=== PATIENT | female | born 1960 | race Caucasian/White ===

== ENCOUNTER → 2016-03-24 | Outpatient (CLI) | payer OTHER ==
--- NOTE | 2016-03-24 10:10 | WWHP ---
DATE OF SERVICE: 03/24/2016 CHIEF COMPLAINT: The patient is here for her routine gynecologic exam and mammogram. HPI: This is a 55-year-old G0 with an LMP of 2011. The patient had been seen by Dr. Persaud regarding some postmenopausal bleeding in 2013. She underwent a hysteroscopy with D&C and a polyp was removed. The patient states she has not had any postmenopausal bleeding since then. She is without gynecologic complaints. Past medical history is unremarkable. MEDICATIONS: Multivitamin daily. She is also taking clindamycin temporarily because of a dental procedure. Allergy to PENICILLIN. PAST SURGICAL HISTORY: Tonsillectomy in the 1960s. 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 SOCIAL HISTORY: She denies tobacco, alcohol, and drug use. She has been since the . 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 REVIEW OF SYSTEMS: She has lost about 10 pounds over the last 2 years. She denies respiratory or cardiac problems. GI: Occasional constipation. This has been chronic for many years. PHYSICAL EXAM: Blood pressure 151/87 with repeat blood pressure 136/80. Height 5 feet 3 inches. Weight 220 pounds. Temperature 98.5, pulse 69. This a well-developed, well-nourished white female who is alert and oriented x3 in no acute distress. HEENT is within normal limits. NECK: Supple without mass or thyromegaly. CHEST AND LUNGS: Clear to auscultation. HEART: Regular rate and rhythm. Breasts are without mass or discharge. Axillary exam is negative for adenopathy. BACK: Negative for CVA tenderness. ABDOMEN: Mildly obese, soft, nontender, without palpable masses. PELVIC EXAM: External genitalia reveals mild atrophy without lesions. Cervix and vagina reveal mild atrophy without lesions. There is no evidence of prolapse. The uterus is midposition, nongravid size and nontender. There are no palpable adnexal masses or tenderness. Rectovaginal exam is negative for mass or tenderness and is negative for occult blood. EXTREMITIES: Nontender. IMPRESSION: 1. A 55-year-old menopausal female with normal gynecologic exam. 2. Elevated blood pressure, which improved after repeating it. PLAN: 1. Pap smear was performed. 2. Self breast examination was discussed. 3. Mammogram will be done today. 4. We have discussed her blood pressure. I have stressed the importance of following up with a doctor for this. She states she will establish with a new primary care physician in the near future and follow up with that person for her blood pressure. 5. I have also recommended screening colonoscopy. She states she would like to do this with her primary care physician once she becomes established with one. 6. She will return in one year.
--- NOTE | 2016-03-25 10:46 | MM ---
Reason for exam: screening (asymptomatic). Last mammogram was performed 2 years and 10 months ago. History: Patient is postmenopausal and is nulliparous. Family history of breast cancer in mother. Physical Findings: A clinical breast exam by your physician is recommended on an annual basis and results should be correlated with mammographic findings. MG 3D Screening Mammo W/Cad Bilateral CC and MLO view(s) were taken. Prior study comparison: May 15, 2013, bilateral digital screening mammo w/CAD. January 05, 2011, bilateral digital screening mammo w/CAD. The breast tissue is extremely dense which could obscure a lesion on mammography. Finding #1: There is a 10 mm equal density (isodense), obscured oval mass in the upper outer quadrant of the right breast. ASSESSMENT: Incomplete: need additional imaging evaluation, BI-RAD 0 RECOMMENDATION: Ultrasound of the right breast. [facility] will attempt to contact patient to return for ultrasound.
== END | disposition home or self-care (01) ==
LOC: WWCWWP 08:54
PROVIDERS: ATTEND Obstetrics & Gynecology
DX: Z12.31 Encounter for screening mammogram for malignant neoplasm of breast (principal); R92.8 Other abnormal and inconclusive findings on diagnostic imaging of breast
CPT/HCPCS: 77063; G0202

== ENCOUNTER → 2016-04-07 | Outpatient (CLI) | payer OTHER ==
--- NOTE | 2016-04-07 08:14 | USB ---
Reason for exam: additional evaluation requested from abnormal screening. History: Patient is postmenopausal and is nulliparous. Family history of breast cancer in mother. Physical Findings: Nurse did not find any significant physical abnormalities on exam. US Breast Workup RT Right breast ultrasound including all four quadrants, the retroareolar region and axilla demonstrates a 0.5 x 0.6 x 0.4cm oval, hyperechoic lipoma at 8 o'clock, a 0.4 x 0.4 x 0.2cm oval, hyperechoic lipoma at 11 o'clock and a 0.6 x 0.9 x 0.4cm oval, cystic tapering duct at 10 o'clock. These results were verbally communicated with the patient and result sheet given to the patient on 04/07/16. ASSESSMENT: Benign, BI-RAD 2 RECOMMENDATION: Return to routine screening mammogram schedule for both breasts.
== END | disposition home or self-care (01) ==
LOC: RADUSWWP 06:53
PROVIDERS: ATTEND Obstetrics & Gynecology
DX: R92.8 Other abnormal and inconclusive findings on diagnostic imaging of breast (principal)

== ENCOUNTER → 2017-01-21 | Outpatient (CLI) | payer OTHER ==
--- NOTE | 2017-01-21 18:14 | XR ---
EXAMINATION TYPE: XR lumbar spine 2 or 3V DATE OF EXAM: 01/21/2017 COMPARISON: NONE HISTORY: Back pain TECHNIQUE: 3 views FINDINGS: Lumbar vertebra show 2 cm anterior subluxation of L5 in relation S1. There is bilateral L5 spondylolysis. There is narrowing at L5-S1 disc space. The other disc spaces appear normal. Sacroilia c joints appear normal. IMPRESSION: Spondylolysis of L5 with second-degree L5-S1 spondylolisthesis.
== END ==
LOC: RADXRMAIN 17:16
PROVIDERS: ATTEND Family Medicine
DX: M43.06 Spondylolysis, lumbar region (principal); M43.17 Spondylolisthesis, lumbosacral region
CPT/HCPCS: 72100

== ENCOUNTER → 2017-07-04 | Outpatient (CLI) | payer OTHER ==
--- NOTE | 2017-07-04 23:08 | MR ---
EXAMINATION TYPE: MR brain wo con DATE OF EXAM: 07/04/2017 COMPARISON: NONE HISTORY: Tremors, Headaches, Short Term Memory Loss Standard multiplanar, multisequence MRI departmental protocol Multiplanar, multisequence images of the brain were acquired. Diffusion weighted imaging was performe d. FINDINGS: There is minimal cerebral cortical atrophy. There is no mass effect nor midline shift. Ther e is no sign of intracranial hemorrhage. There are scattered high signal foci at the johns-white matte r junction of both cerebral hemispheres. These measure up to 6 mm. Total number is approximately 10. Ventricles of normal size. There is subtle increased signal on the left side of the ghulma on the FLAIR and T2 images. This area measures 1 cm. The sella turcica appears normal. There is no evidence of a cortical infarct. IMPRESSION: White matter lesions as above are nonspecific. I would consider microvascular ischemia and less likel y demyelinating disease. These are not close to the lateral ventricles. Minimal anterior ethmoid sinusitis is noted.
== END ==
LOC: RADMRIMAIN 16:26
PROVIDERS: ATTEND Family Medicine
DX: R90.82 White matter disease, unspecified (principal); F80.89 Other developmental disorders of speech and language
CPT/HCPCS: 70551

== ENCOUNTER → 2017-07-12 | Outpatient (CLI) | payer OTHER ==
[2017-07-12 12:48] VITALS: BP 138/85; PULSE 79; RESP 12; TEMP 98.3; BMI 42.1
--- NOTE | 2017-07-12 13:46 | P.HPOB ---
History of Present Illness H&P Date: 07/12/17 Chief Complaint: The patient is here for her routine gynecologic exam and mammogram. This is a 57-year-old G0 with an LMP of 2010. The patient states she has had intermittent light vaginal bleeding since 1217. She states that most days she does not have any blood but about 2 times per week has noticed light vaginal bleeding. She has noticed that the bleeding can be associated with heavy lifting. She had a pelvic ultrasound on 06/22/2017 done by [facility]. This showed a 6.7 cm mass at the superior aspect of the uterus which was found to possibly represent an exophytic fibroid. The endometrium was obscured. She previously had a benign endometrial polyp removed with hysteroscopy and D&C in [address] Persaud. She has otherwise without gynecologic complaints. Review of Systems The patient has gained about 18 pounds over the last one and half years. She denies respiratory or cardiac problems. G.I.: constipation. 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 Past Surgical History: Tonsillectomy Past Psychological History: No Psychological Hx Reported Smoking Status: Never smoker Past Alcohol Use History: None Reported Past Drug Use History: None Reported Additional History: She was in the . She is not sexually active. 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 - Past Family History Father Family Medical History: Cancer (Gastric) Mother Family Medical History: Cancer (Breast) Medications and Allergies Home Medications Medication Instructions Recorded Confirmed Type No Known Home Medications [No 07/12/17 07/12/17 History Known Home Medications] Allergies Allergy/AdvReac Type Severity Reaction Status Date / Time Penicillins Allergy Unknown Verified 07/12/17 13:40 Exam - Vital Signs Vital signs: Vital Signs Temp Pulse Resp BP 07/12/17 12:34 98.3 F 79 12 138/85 Intake and Output 07/11/17 07/12/17 07/12/17 22:59 06:59 14:59 Other: Weight 107.955 kg Height 5'3", BMI 42.2. This is a well-developed well-nourished obese white female who is alert and oriented times 3 in no acute distress. HEENT: Within normal limits. NECK: Supple without mass or thyromegaly. CHEST AND LUNGS: Clear to auscultation. HEART: Regular rate and rhythm. BREASTS: Are without mass or discharge. AXILLARY EXAM: Negative for adenopathy. BACK: Negative for CVA tenderness. ABDOMEN: Soft, obese, nontender, without palpable masses. PELVIC EXAM: Normal external genitalia with minimal atrophy. Cervix and vagina appear normal with small amount of old blood. There is no evidence of prolapse. The uterus is midposition, nongravid size and nontender. There are no palpable adnexal masses or tenderness. Bimanual examination is somewhat limited secondary to her size. RECTAL EXAM: rectovaginal exam is negative for mass or tenderness and is negative for occult blood. EXTREMITIES: Nontender. IMPRESSION: 1. 57-year-old female with postmenopausal bleeding. She is head of the bleeding for about 5 months and this has been light and intermittent. Differential diagnosis will include recurrence of an individual polyp, endometrial growth secondary to endogenous estrogen as well as endometrial neoplasia. 2. History of postmenopausal bleeding which resolved after a hysteroscopy and D &C in 2013. 3. Pelvic mass by ultrasound, possible exophytic fibroid. Other possibilities including ovarian mass will be considered. PLAN: 1. Pap smear was deferred since she had a normal one last year. 2. Self breast awareness was discussed. 3. Mammogram will be done today. 4. Pelvic ultrasound will be ordered and can include trans abdominal and possible transvaginal to further delineate the endometrium and pelvic mass. 5. The patient will be referred to Dr. Persaud who previously saw her for postmenopausal bleeding in 2014. 6. She'll also returning one year and PRN.
--- NOTE | 2017-07-13 10:33 | MM ---
Reason for exam: screening (asymptomatic). Last mammogram was performed 1 year and 4 months ago. History: Patient is postmenopausal and is nulliparous. Family history of breast cancer in mother. Physical Findings: A clinical breast exam by your physician is recommended on an annual basis and results should be correlated with mammographic findings. MG 3D Screening Mammo W/Cad Bilateral CC and MLO view(s) were taken. Prior study comparison: March 24, 2016, bilateral MG 3d screening mammo w/cad. May 15, 2013, bilateral digital screening mammo w/CAD. The breast tissue is heterogeneously dense. This may lower the sensitivity of mammography. There is chronic nodularity bilaterally. There is no dominant lesion. No significant changes when compared with prior studies. ASSESSMENT: Benign, BI-RAD 2 RECOMMENDATION: Routine screening mammogram of both breasts in 1 year.
== END | disposition home or self-care (01) ==
LOC: WWCWWP 12:26
PROVIDERS: ATTEND Obstetrics & Gynecology
DX: Z12.31 Encounter for screening mammogram for malignant neoplasm of breast (principal)
CPT/HCPCS: 77063; 77067

== ENCOUNTER → 2017-07-21 | Outpatient (CLI) | payer OTHER ==
--- NOTE | 2017-07-21 13:09 | US ---
EXAMINATION TYPE: US pelvis complete transvag DATE OF EXAM: 07/21/2017 COMPARISON: Pelvic ultrasound January 05, 2011 CLINICAL HISTORY: [id number] mass ,N95.0 menorrhagia. Spotting for 5 months TECHNIQUE: Transvaginal (TV) and Transabdominal (TA) . Transabdominal sonographic images of the pel vis were acquired. Transvaginal sonographic images were medically necessary to better assess the fol lowing anatomy: uterus and ovaries Date of LMP: unknown EXAM MEASUREMENTS: Uterus: 7.7 x 3.6 x 5.1 cm Endometrial Stripe: 1.2 cm Right Ovary: unable to visualize Left Ovary: 1.5 x 1.7 x 1.1 cm 1. Uterus: Retroverted heterogeneous with a complex area posterior body = 1.0 x 0.9 x 1.5cm and comp bhumi area anterior fundus = 1.3 x 0.9 x 1.1cm (fibroids) 2. Endometrium: thickened, heterogenous 3. Right Ovary: Obscured by overlying bowel gas 4. Left Ovary: anechoic area adjacent to ovary = 0.8 x 1.0cm 5. Bilateral Adnexa: appears wnl 6. Posterior cul-de-sac: wnl Suspicious heterogeneous thickening of endometrium more prominent than prior. Technologist acuna jazmin jordan 1.0 cm hyperechoic lesion felt to reflect outer intramural fibroid. No free fluid is seen in pelvis . Left ovary is identified. Right ovary is not clearly seen. No worrisome adnexal masses are present. T echnologist acuna 1 cm oval area adjacent to left ovary could reflect simple small paraovarian cyst. IMPRESSION: Suspicious thickening of endometrium in postmenopausal patient with spotting, neoplasm ca nnot be excluded, further investigation with sampling is advised.
== END | disposition home or self-care (01) ==
LOC: RADUSWWP 06:55
PROVIDERS: ATTEND Obstetrics & Gynecology
DX: N95.0 Postmenopausal bleeding (principal); R19.00 Intra-abdominal and pelvic swelling, mass and lump, unspecified site
CPT/HCPCS: 76830; 76856

== ENCOUNTER 2017-08-03 08:04 | Day surgery (SDC) | payer OTHER ==
[2017-08-01 12:56] VITALS: BMI 40.3
[~2017-08-03 08:04] MED LIST: LACTATED RINGERS 1,000 ML IV SCH; LIDOCAINE 1% 20 ML VIAL (10MG/ML) FOR IV START INTRADERMA PRN
--- NOTE | 2017-08-03 08:06 | P.GSHP ---
History of Present Illness H&P Date: 08/03/17 CHIEF COMPLAINT: Colon screen HISTORY OF PRESENT ILLNESS: The patient is a 57-year-old female who presents for colon screen. Lower endoscopy was offered for further evaluation and management. PAST MEDICAL HISTORY: Please see list. PAST SURGICAL HISTORY: Please see list. MEDICATIONS: Please see list. ALLERGIES: Please see list. SOCIAL HISTORY: No illicit drug use FAMILY HISTORY: No reports of Crohn disease or ulcerative colitis. REVIEW OF ORGAN SYSTEMS: CONSTITUTIONAL: No reports of fevers or chills. PHYSICAL EXAM: VITAL SIGNS: Stable GENERAL: Well-developed pleasant in no acute distress. HEENT: No scleral icterus. Extraocular movements grossly intact. Moist buccal mucosa. NECK: Supple without lymphadenopathy. CHEST: Unlabored respirations. Equal bilateral excursions. CARDIOVASCULAR: Regular rate and rhythm. Distal 2+ pulses. ABDOMEN: Soft, nontender, nondistended. MUSCULOSKELETAL: No clubbing, cyanosis, or edema. ASSESSMENT: 1. Colon screen. PLAN: 1. Recommend proceeding with a lower endoscopy Past Medical History Past Medical History: No Reported History Additional Past Medical History / Comment(s): hx migraines, occ heartburn, irregular bowel movement/constipation, History of Any Multi-Drug Resistant Organisms: None Reported Past Surgical History: Tonsillectomy Past Anesthesia/Blood Transfusion Reactions: Motion Sickness Smoking Status: Never smoker - Past Family History Father Family Medical History: Cancer (Gastric) Mother Family Medical History: Cancer (Breast) Medications and Allergies Home Medications Medication Instructions Recorded Confirmed Type Calcium + Vitamin D (Dose Unknown) 1 tab PO DAILY 08/01/17 08/01/17 History Allergies Allergy/AdvReac Type Severity Reaction Status Date / Time Penicillins Allergy Unknown Verified 08/01/17 12:49 Childhood
[2017-08-03 08:31] VITALS: TEMP 95
[2017-08-03] MEDS ORDERED: PROPOFOL 10 MG/ML 20 ML VIAL IV ONE (08:48)
[2017-08-03] MEDS ORDERED: fentaNYL (PF) 50 MCG/ML 2 ML AMP ONE (08:48)
[2017-08-03] MEDS ORDERED: LIDOCAINE 1% INJ 10MG/ML (20 ML MDV) ONE (08:48)
--- NOTE | 2017-08-03 08:56 | P.HPADDEND ---
H&P Addendum H&P Addendum Date: 08/03/17 Patient reports family history of stomach cancer in her father including new onset gastroesophageal reflux disease and epigastric abdominal pain. We'll proceed with upper endoscopy as well for high risk stomach cancer history within her family.
--- NOTE | 2017-08-03 09:25 | P.PCN ---
Date of Procedure: 08/03/17 Description of Procedure: PREOPERATIVE DIAGNOSIS: Gastroesophageal reflux disease. Morbid obesity. Family history of gastric cancer Epigastric abdominal pain POSTOPERATIVE DIAGNOSIS: Gastroesophageal reflux disease. Morbid obesity. Family history of gastric cancer Epigastric abdominal pain Erosive esophagitis Gastritis OPERATION: Esophagogastroduodenoscopy with biopsies along antrum and GE junction SURGEON: Jeni Ramirez MD ANESTHESIA: MAC. INDICATIONS: The patient is a 57-year-old female who presents with a history of reflux disease. Benefits and risks of the procedure were described. Informed consent was obtained. DESCRIPTION: The patient was brought into the endoscopy suite and laid in the left lateral decubitus position. An Olympus gastroscope was passed along the posterior oropharynx down to the distal esophagus where the squamocolumnar junction was encountered at 35 cm from the incisors. The stomach was entered and no bile reflux was found. Additional findings are listed below. Biopsies with cold forceps were obtained of the antrum. The first through third portion of the duodenum was examined and unremarkable. Retroflexion of the scope confirmed Hill grade 3 lower esophageal valve. The squamocolumnar junction acute LA grade A erosive esophagitis with biopsies obtained. The stomach was desufflated. The patient tolerated the procedure well. FINDINGS: Squamocolumnar junction 35 cm from the incisors. Diaphragmatic hiatus at 35 cm. Hill grade 4 lower esophageal valve. LA grade A erosive esophagitis, acute with biopsies obtained. No active duodenitis. Superficial acute gastritis RECOMMENDATIONS: Further recommendations pending results of pathology report. Upper endoscopy as needed.
--- NOTE | 2017-08-03 09:28 | P.PCN ---
Date of Procedure: 08/03/17 Description of Procedure: PREOPERATIVE DIAGNOSIS: Colonoscopy screening. Family history of gastrointestinal cancer POSTOPERATIVE DIAGNOSIS: Colonoscopy screening. Family history of gastrointestinal cancer Diverticulosis, scattered. OPERATION: Colonoscopy to the ileocecal valve and appendiceal orifice. SURGEON: Jeni Ramirez MD. ANESTHESIA: MAC. INDICATIONS: The patient is a 57-year-old female who presents for colonoscopy screening. Benefits and risks were described and informed consent was obtained. DESCRIPTION OF PROCEDURE: The patient had undergone Gatorade, MiraLAX and Dulcolax prep. She had been brought into the operating room and laid in the left lateral decubitus position. After adequate intravenous sedation, the rectum was examined with 2% lidocaine jelly. No external hemorrhoids were encountered. The rectal tone was within normal limits. No lesions were palpated in the rectal vault. An Olympus colonoscope was advanced until the ileocecal valve and appendiceal orifice were clearly viewed. The prep was excellent with clear visualization of the mucosal folds. The scope was removed with visualization of each mucosal fold. Scattered diverticulosis was encountered. No colonic polyps were found. No evidence of focal colitis was found. Retroflexion of the scope demonstrated no grade 1 internal hemorrhoids. The colon was desufflated. The patient had tolerated the procedure well. Withdrawal time was over 6 minutes. FINDINGS: No internal hemorrhoids No external prolapsed hemorrhoids. No arteriovenous malformations. No adenomatous polyps. No focal colitis. Scattered diverticulosis RECOMMENDATIONS: Lower endoscopy in 5 years with family history of gastrointestinal cancer, 2022 Plan - Discharge Summary New Discharge Prescriptions: New Omeprazole 40 mg PO DAILY #30 capsule. No Action Calcium + Vitamin D (Dose Unknown) 1 tab PO DAILY Discharge Medication List Calcium + Vitamin D (Dose Unknown) 1 tab PO DAILY 08/01/17 [History] Omeprazole 40 mg PO DAILY #30 capsule. 08/03/17 [Rx] Follow up Appointment(s)/Referral(s): Jeni Ramirez MD [STAFF PHYSICIAN] - 08/23/17 Patient Instructions/Handouts: Gastroesophageal Reflux Disease (GEN), Diverticulosis (DC), Diverticulosis Diet (GEN) Activity/Diet/Wound Care/Special Instructions: Repeat colonoscopy in 5 years, 2022 Discharge Disposition: HOME SELF-CARE
[2017-08-03 09:43] VITALS: RESP 18
[2017-08-03 09:49] VITALS: BP 117/70; PULSE 62
== END 2017-08-03 10:07 | disposition home or self-care (01) ==
LOC: ORWHC2ENDO 08:04
PROVIDERS: ATTEND Surgery Plastic and Reconstructive Surgery
DX: K29.00 Acute gastritis without bleeding (principal); K29.50 Unspecified chronic gastritis without bleeding; K57.30 Diverticulosis of large intestine without perforation or abscess without bleeding; K64.4 Residual hemorrhoidal skin tags; K21.0 Gastro-esophageal reflux disease with esophagitis; E66.01 Morbid (severe) obesity due to excess calories; K22.10 Ulcer of esophagus without bleeding; Z80.0 Family history of malignant neoplasm of digestive organs; Z88.0 Allergy status to penicillin; Z80.3 Family history of malignant neoplasm of breast; Z68.41 Body mass index [BMI] 40.0-44.9, adult
CPT/HCPCS: 88305; 45378; 43239; J2001; J3010; J2704

== ENCOUNTER → 2017-08-15 | Outpatient (CLI) | payer OTHER ==
[2017-08-15 17:42] LABS: Blood Urea Nitrogen 18 mg/dL (7-17)
== END | disposition home or self-care (01) ==
LOC: LABWHC1 17:14
PROVIDERS: ATTEND Psychiatry & Neurology Neurology
DX: I51.7 Cardiomegaly (principal)
CPT/HCPCS: 36415; 82565; 84520

== ENCOUNTER → 2017-08-17 | Outpatient (CLI) | payer OTHER ==
--- NOTE | 2017-08-18 00:51 | MR ---
EXAMINATION TYPE: MR cervical spine wo/w con DATE OF EXAM: 08/17/2017 COMPARISON: NONE HISTORY: Tremors, Radiculopathy TECHNIQUE: Multiplanar, multisequence images of the cervical spine were acquired utilizing 10 mL intravenous Elfego avist gadolinium contrast. Diffusion weighted imaging was performed. The cervical vertebra have normal alignment. There is some narrowing of disc spaces from C3 to C7 wit h mild spurring of the endplates. There is posterior disc herniation from C5 to T1. This is larger at C5-6. There is developmentally adequate spinal canal. There is no significant spinal stenosis. Cervi ninfa spinal cord has normal signal pattern. There is no edema. Spinal canal measures 8 mm at C5-6. The re is no evidence of cervical paraspinal mass. The contrast images show no pathologic enhancement. I see no bony destructive process. There is slight elevation of the posterior longitudinal ligament pos terior to T1 vertebra. IMPRESSION: Spondylotic changes. Multilevel posterior cervical disc herniation and larger at C5-6. 8 mm narrowing at C5-6. Normal cervical spinal cord. There is minimal neural foraminal narrowing due to uncovertebr al spurring at C3-4 C4-5 on the right side.
== END | disposition home or self-care (01) ==
LOC: RADMRIMAIN 17:23
PROVIDERS: ATTEND Psychiatry & Neurology Neurology
DX: M48.02 Spinal stenosis, cervical region (principal); M99.71 Connective tissue and disc stenosis of intervertebral foramina of cervical region; M50.122 Cervical disc disorder at C5-C6 level with radiculopathy; M47.22 Other spondylosis with radiculopathy, cervical region
CPT/HCPCS: 72156; A9581

== ENCOUNTER → 2019-05-22 | Outpatient (CLI) | payer BC, OTHER ==
[2019-05-22 10:37] VITALS: BP 139/83; PULSE 52; RESP 18; TEMP 99
--- NOTE | 2019-05-22 11:27 | P.HPOB ---
History of Present Illness H&P Date: 05/22/19 Chief Complaint: The patient is here for her routine gynecologic exam and ma mmogram. This is a 59-year-old G0 with an LMP of 2010. The patient continues to have intermittent light vaginal bleeding. She was seen [place] [address] Persaud who did a hysteroscopy and D&C and an endometrial polyp was removed. She developed intermittent light vaginal bleeding and last year she was sent back to see Dr. Persaud. On 09/12/17 Dr. Persaud did an endometrial biopsy which was benign. The pa summer states she was given some type of hormone medication for 10 days which caused the bleeding to become heavier briefly. She again was having light vaginal bleeding intermittently. During the month of March of this year she had light bleeding most days. Since March it is been about 3 times a week. Review of Systems She has gained about 16 pounds over the past year. Respiratory: She states she seems to get short of breath when she is in the laying position. She has an occasional cough. She denies cardiac or GI problems. She has been tired and feels run down. Past Medical History Past Medical History: Hypertension Additional Past Medical History / Comment(s): Tremor. 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 History of Any Multi-Drug Resistant Organisms: None Reported Past Surgical History: Tonsillectomy Additional Past Surgical History / Comment(s): Colonoscopy approximately 2015. Past Anesthesia/Blood Transfusion Reactions: Motion Sickness Past Psychological History: No Psychological Hx Reported Smoking Status: Never smoker Past Alcohol Use History: None Reported Past Drug Use History: None Reported Additional History: She was in the 1980s and is not sexually active or seeing anybody at this time. She works for [employer]. - Past Family History Father Family Medical History: Cancer Additional Family Medical History / Comment(s): Gastric cancer. Mother Family Medical History: Cancer Additional Family Medical History / Comment(s): Breast cancer. Medications and Allergies Home Medications Medication Instructions Recorded Confirmed Type Propranolol [Inderal] 20 mg PO BID 05/22/19 05/22/19 History Allergies Allergy/AdvReac Type Severity Reaction Status Date / Time Penicillins Allergy Unknown Verified 05/22/19 10:37 Childhood Exam Vital Signs Temp Pulse Resp BP Pulse Ox 05/22/19 10:31 99.0 F 52 L 18 139/83 96 Intake and Output 05/21/19 05/22/19 05/22/19 22:59 06:59 14:59 Other: Weight 115.666 kg Height 5 feet 4 inches, weight 255 pounds, BMI 43.8. This is a well-developed well-nourished heavyset white female who is alert and oriented times 3 in no acute distress. HEENT: Within normal limits. NECK: Supple without mass or thyromegaly. CHEST AND LUNGS: Clear to auscultation. HEART: Regular rate and rhythm. BREASTS: Are without mass or discharge. AXILLARY EXAM: Negative for adenopathy. BACK: Negative for CVA tenderness. ABDOMEN: Soft, obese, nontender, without palpable masses. PELVIC EXAM: Normal external genitalia. Cervix and vagina are without lesions. There is a small amount of blood in the back of the vagina. There is otherwise no unusual discharge. There is no evidence of prolapse. The uterus is midposition, nongravid size and nontender. There are no palpable adnexal masses or tenderness. Bimanual examination is somewhat limited secondary to her size. RECTAL EXAM: Rectovaginal exam is negative for mass or tenderness and is negative for occult blood. EXTREMITIES: Nontender. IMPRESSION: 1. 59-year-old menopausal female with persistent recurrent light postmenopausal bleeding. Differential diagnosis will include bleeding endometrial polyp, endometrial hyperplasia, or other endometrial neoplasia. 2. History of endometrial polyp removed in 2013. Status post endometrial biopsy on 09/12/2017 which was benign. PLAN: 1. Pap smear was performed. 2. Self breast awareness was discussed with the patient. 3. Screening mammogram will be done today. 4. The patient will be referred back to Dr. Persaud for the persistent postmenopausal bleeding for hysteroscopy and D&C. 5. Osteoporosis prevention was discussed. I have stressed the importance of adequate calcium, vitamin D and regular exercise. Recommended amounts of calcium and vitamin D were also discussed. I have recommended bone density testing next year at the age of 60. 6. She will follow-up with her PCP for various symptoms including orthopnea, fatigue, and leg edema. 7. She was advised to return in one year for her annual well woman exam.
--- NOTE | 2019-05-23 13:20 | MM ---
Reason for exam: screening (asymptomatic). Last mammogram was performed 1 year and 10 months ago. History: Patient is postmenopausal and is nulliparous. Family history of breast cancer in mother. Physical Findings: A clinical breast exam by your physician is recommended on an annual basis and results should be correlated with mammographic findings. MG 3D Screening Mammo W/Cad Bilateral CC and MLO view(s) were taken. Prior study comparison: July 12, 2017, bilateral MG 3d screening mammo w/cad. March 24, 2016, bilateral MG 3d screening mammo w/cad. The breast tissue is heterogeneously dense. This may lower the sensitivity of mammography. Benign appearing bilateral calcifications. No suspicious abnormality. No significant changes when compared with prior studies. ASSESSMENT: Benign, BI-RAD 2 RECOMMENDATION: Routine screening mammogram of both breasts in 1 year.
--- NOTE | 2019-06-05 12:19 | P.PN ---
Progress Note - Text Progress Note Date: 06/05/19 OUTPATIENT FOLLOW-UP NOTE TEST(S)/RESULTS: Test results from 05/22/2019 include negative Pap smear and benign mammogram. METHOD OF NOTIFICATION: The patient was notified by phone. PATIENT COMMENTS: She is happy to hear these results. DIAGNOSIS: Negative Pap smear and benign mammogram. DISCUSSION: PLAN: The patient will be referred to Dr. Persaud for recurrent postmenopausal bleeding as discussed in her H&P. She understands there may be some delay in this referral due to the COVID-19 pandemic.
== END | disposition home or self-care (01) ==
LOC: WWCWWP 10:23
PROVIDERS: ATTEND Obstetrics & Gynecology
DX: Z12.31 Encounter for screening mammogram for malignant neoplasm of breast (principal)
CPT/HCPCS: 77063; 77067

== ENCOUNTER → 2020-10-22 | Outpatient (CLI) | payer BC ==
--- NOTE | 2020-10-22 20:01 | NM ---
EXAMINATION TYPE: NM stress cardiolite complete DATE OF EXAM: 10/22/2020 COMPARISON: NONE HISTORY: Chest pain TECHNIQUE: After the intravenous administration of 10 mCi Tc 99m Sestamibi - Cardiolite resting SPEC T images acquired 45 minutes post injection. At peak stress 24.7 mCi Tc 99m Sestamibi - Stress images obtained 15 minutes post injection The patient was stressed on the treadmill with Sky protocol FINDINGS: There is diminished radiotracer accumulation along the anterior wall. This area appears improved on t he resting images. Pulmonary maps suggest reversible defect at the cardiac apex. There is some dyskinesia of the distal anterior wall and cardiac apex. Ejection fraction is calculated to be 53 %. IMPRESSION: 1. Stress-induced ischemic change at the cardiac apex and likely within the distal anterior wall from the midportion to the apex. Dyskinesias present through these levels. Correlate for stress-induced i schemic change. A [place] level critical message alert has been initiated for Yeimi Yates MD via the [employer] Critical Results System on 10/22/2020 7:58 PM. This message alert has been sent to Yeimi Yates MD via the preferences provided by the clinician for the receipt of Radiology Critical Findings. Message ID [id number].
== END | disposition home or self-care (01) ==
LOC: RADNMMAIN 07:37
PROVIDERS: ATTEND Internal Medicine
DX: G24.9 Dystonia, unspecified (principal)
CPT/HCPCS: 93017; 78452; A9500

== ENCOUNTER 2020-10-23 13:30 | Inpatient (IN) | payer BC ==
[2020-10-23] MEDS ORDERED: ASPIRIN 81 MG PO STA (13:45)
[2020-10-23 14:04] LABS: Basophils # (A) 0.1 k/uL (0-0.2); Basophils % (A) 1 %; Eosinophils # (A) 0.6 k/uL (0-0.7); Eosinophils % (A) 5 %; HGB 13.8 gm/dL (11.4-16.0); Lymphocytes % (A) 24 %; MCH 28.7 pg (25.0-35.0); MCHC 32.8 g/dL (31.0-37.0); MCV 87.6 fL (80.0-100.0); Mean Platelet Volume 8.4; Monocytes # (A) 0.7 k/uL (0-1.0); Monocytes % (A) 6 %; Neutrophils # (A) 7.6 k/uL (1.3-7.7); Neutrophils % (A) 62 %; Platelet Count 253 k/uL (150-450); RDW 14.7 % (11.5-15.5); WBC 12.2 k/uL (3.8-10.6)
[2020-10-23 14:17] LABS: Albumin 4.2 g/dL (3.5-5.0); Calcium 9.9 mg/dL (8.4-10.2); Total Bilirubin 0.3 mg/dL (0.2-1.3)
[2020-10-23 14:20] LABS: INR 0.9 (<1.2); Prothrombin Time 9.9 sec (9.0-12.0)
[2020-10-23 14:29] LABS: Magnesium 2.1 mg/dL (1.6-2.3); Potassium 4.9 mmol/L (3.5-5.1)
[2020-10-23 14:34] LABS: Partial Thromboplastin Time 20.2 sec (22.0-30.0)
--- NOTE | 2020-10-23 14:34 | XR ---
EXAMINATION TYPE: XR chest 2V DATE OF EXAM: 10/23/2020 COMPARISON: None HISTORY: 60-year-old female with chest pain TECHNIQUE: PA and lateral views FINDINGS: Heart appears borderline enlarged. Aorta and pulmonary vasculature within normal limits. No consolida tion or pleural effusion. IMPRESSION: Borderline heart size. No acute process seen.
--- NOTE | 2020-10-23 14:50 | ED ---
Recheck HPI - General Chief Complaint: Recheck/Abnormal Lab/Rx Stated Complaint: Recheck/Abnormal Stress Test Time Seen by Provider: 10/23/20 13:38 Source: patient, RN notes reviewed, old records reviewed Mode of arrival: ambulatory Limitations: no limitations - History of Present Illness Initial Comments: 6-year-old female sent in from her doctor after having a abnormal stress test yesterday. She had a Cardiolite stress test which showed evidence of ischemic changes on EKG. She currently is asymptomatic this time and has expressed that she's had some exertional dyspnea and decreased energy recently. No fevers chills nausea vomiting sweats or other symptoms - Related Data Home Medications Medication Instructions Recorded Confirmed Propranolol [Inderal] 20 mg PO BID 05/22/19 05/22/19 Allergies Allergy/AdvReac Type Severity Reaction Status Date / Time Penicillins Allergy Unknown Verified 10/23/20 15:17 Childhood Review of Systems ROS Statement: Those systems with pertinent positive or pertinent negative responses have been documented in the HPI. ROS Other: All systems not noted in ROS Statement are negative. Past Medical History Past Medical History: Hypertension Additional Past Medical History / Comment(s): Tremor. 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 History of Any Multi-Drug Resistant Organisms: None Reported Past Surgical History: Tonsillectomy Additional Past Surgical History / Comment(s): Colonoscopy approximately 2015. Past Anesthesia/Blood Transfusion Reactions: Motion Sickness Past Psychological History: No Psychological Hx Reported Smoking Status: Never smoker Past Alcohol Use History: Rare Past Drug Use History: None Reported - Past Family History Father Family Medical History: Cancer Additional Family Medical History / Comment(s): Gastric cancer. Mother Family Medical History: Cancer Additional Family Medical History / Comment(s): Breast cancer. General Exam - General Exam Comments Initial Comments: This is a well-developed well-nourished awake alert oriented 3 female Limitations: no limitations General appearance: alert, in no apparent distress Head exam: Present: atraumatic, normocephalic, normal inspection Eye exam: Present: normal appearance, PERRL, EOMI. Absent: scleral icterus, conjunctival injection, periorbital swelling ENT exam: Present: normal exam, mucous membranes moist Neck exam: Present: normal inspection, full ROM, other (No stridor JVD or bruits). Absent: tenderness, meningismus, lymphadenopathy Respiratory exam: Present: normal lung sounds bilaterally. Absent: respiratory distress, wheezes, rales, rhonchi, stridor Cardiovascular Exam: Present: regular rate, normal rhythm, normal heart sounds. Absent: systolic murmur, diastolic murmur, rubs, gallop, clicks GI/Abdominal exam: Present: soft, normal bowel sounds. Absent: distended, tenderness, guarding, rebound, rigid Extremities exam: Present: normal inspection, full ROM, normal capillary refill. Absent: tenderness, pedal edema, joint swelling, calf tenderness Back exam: Present: normal inspection Neurological exam: Present: alert, oriented X3, CN II-XII intact Psychiatric exam: Present: normal affect, normal mood Skin exam: Present: warm, dry, intact, normal color. Absent: rash Course Vital Signs 10/23/20 10/23/20 13:32 14:42 Temperature 98.6 F Pulse Rate 75 63 Respiratory 18 18 Rate Blood Pressure 154/71 134/72 O2 Sat by Pulse 97 96 Oximetry Medical Decision Making - Medical Decision Making I did a long discussion with the patient regarding the findings and Dr. Marcelo patient be admitted with cardiology consultation. - Lab Data Result diagrams: 10/23/20 13:51 10/23/20 13:59 Lab Results 10/23/20 10/23/20 10/23/20 Range/Units 13:51 13:51 13:51 WBC 12.2 H (3.8-10.6) k/uL RBC 4.80 (3.80-5.40) m/uL Hgb 13.8 (11.4-16.0) gm/dL Hct 42.0 (34.0-46.0) % MCV 87.6 (80.0-100.0) fL MCH 28.7 (25.0-35.0) pg MCHC 32.8 (31.0-37.0) g/dL RDW 14.7 (11.5-15.5) % Plt Count 253 (150-450) k/uL MPV 8.4 Neutrophils % 62 % Lymphocytes % 24 % Monocytes % 6 % Eosinophils % 5 % Basophils % 1 % Neutrophils # 7.6 (1.3-7.7) k/uL Lymphocytes # 3.0 (1.0-4.8) k/uL Monocytes # 0.7 (0-1.0) k/uL Eosinophils # 0.6 (0-0.7) k/uL Basophils # 0.1 (0-0.2) k/uL PT 9.9 (9.0-12.0) sec INR 0.9 (<1.2) APTT 20.2 L (22.0-30.0) sec D-Dimer 0.84 H (<0.60) mg/L FEU Sodium (137-145) mmol/L Potassium (3.5-5.1) mmol/L Chloride (98-107) mmol/L Carbon Dioxide (22-30) mmol/L Anion Gap mmol/L BUN (7-17) mg/dL Creatinine (0.52-1.04) mg/dL Est GFR (CKD-EPI)AfAm (>60 ml/min/1.73 sqM) Est GFR (CKD-EPI)NonAf (>60 ml/min/1.73 sqM) Glucose (74-99) mg/dL Calcium (8.4-10.2) mg/dL Magnesium (1.6-2.3) mg/dL Total Bilirubin (0.2-1.3) mg/dL AST (14-36) U/L ALT (4-34) U/L Alkaline Phosphatase (38-126) U/L Creatine Kinase (30-135) U/L Troponin I (0.000-0.034) ng/mL NT-Pro-B Natriuret Pep 76 pg/mL Total Protein (6.3-8.2) g/dL Albumin (3.5-5.0) g/dL 10/23/20 10/23/20 Range/Units 13:59 13:59 WBC (3.8-10.6) k/uL RBC (3.80-5.40) m/uL Hgb (11.4-16.0) gm/dL Hct (34.0-46.0) % MCV (80.0-100.0) fL MCH (25.0-35.0) pg MCHC (31.0-37.0) g/dL RDW (11.5-15.5) % Plt Count (150-450) k/uL MPV Neutrophils % % Lymphocytes % % Monocytes % % Eosinophils % % Basophils % % Neutrophils # (1.3-7.7) k/uL Lymphocytes # (1.0-4.8) k/uL Monocytes # (0-1.0) k/uL Eosinophils # (0-0.7) k/uL Basophils # (0-0.2) k/uL PT (9.0-12.0) sec INR (<1.2) APTT (22.0-30.0) sec D-Dimer (<0.60) mg/L FEU Sodium 140 (137-145) mmol/L Potassium 4.9 (3.5-5.1) mmol/L Chloride 109 H (98-107) mmol/L Carbon Dioxide 21 L (22-30) mmol/L Anion Gap 10 mmol/L BUN 21 H (7-17) mg/dL Creatinine 0.85 (0.52-1.04) mg/dL Est GFR (CKD-EPI)AfAm 86 (>60 ml/min/1.73 sqM) Est GFR (CKD-EPI)NonAf 75 (>60 ml/min/1.73 sqM) Glucose 105 H (74-99) mg/dL Calcium 9.9 (8.4-10.2) mg/dL Magnesium 2.1 (1.6-2.3) mg/dL Total Bilirubin 0.3 (0.2-1.3) mg/dL AST 31 (14-36) U/L ALT 29 (4-34) U/L Alkaline Phosphatase 75 (38-126) U/L Creatine Kinase 92 (30-135) U/L Troponin I <0.012 (0.000-0.034) ng/mL NT-Pro-B Natriuret Pep pg/mL Total Protein 7.0 (6.3-8.2) g/dL Albumin 4.2 (3.5-5.0) g/dL - EKG Data -: EKG Interpreted by [facility] EKG shows normal: sinus rhythm EKG Comments: Sinus rhythm with a right bundle-branch block pattern rate 74. Interval 148 QRS durations [birth year]/1941 QT/QTC 432/479 this is compared with EKG dated 05/28/13 for similar configuration. - Radiology Data Radiology results: report reviewed (Imaging reviewed no acute findings), image reviewed Disposition Clinical Impression: Unstable angina, Elevated d-dimer Disposition: ADMITTED IP TO THIS [facility] Condition: Stable Referrals: Milan,Yeimi, MD [Primary Care Provider] - 1-2 days
[2020-10-23] MEDS ORDERED: HEPARIN SODIUM 1,000 UN/ML (10ML VL) IV ONE (14:55)
[2020-10-23] MEDS ORDERED: NITROGLYCERIN SL TABS 0.4 MG TAB SUBLINGUAL PRN (14:55)
[2020-10-23] MEDS ORDERED: HEPARIN SOD,PORK IN 0.45% NACL 25,000 UNIT in 0.45% NACL 1 250ML.BAG IV SCH (15:00)
[2020-10-23] MEDS: SODIUM CHLORIDE 0.9% 1,000 ML IV SCH (15:18)
--- NOTE | 2020-10-23 18:02 | P.STRESS ---
- Stress Test Note Stress Test Results/Findings: Exam Performed: Exam Date: Reason for Exam: Height: 5 ft 4 in Weight: 117.934 kg Protocol: Stage: Duration of Exercise: Resting Heart Rate: Resting Blood Pressure: Maximum Achieved Heart Rate: Maximum Achieved Blood Pressure: 85% PMHR: 100% PMHR: METS: Technologist Comment: Stress Test Results/Findings: Patient underwent exercise stress EKG with a Sky protocol treadmill stress test. Patient exercised into Stage 2 for a total of 5 minutes 36 seconds reaching a total of 6.8 METS. Patient's maximum heart rate was 156 which represented 98 % age-predicted maximum heart rate. Stress EKG findings: At baseline patient's EKG showed normal sinus rhythm, right axis deviation, r ight bundle yvon block with nonspecific ST depressions V1 through V4. At peak exercise, EKG showed accentuation of baseline EKG abnormalities which is nondiagnostic given baseline EKG abnormalities. Conclusions: 1. Nondiagnostic stress EKG secondary to baseline EKG abnormalities. Consider stress test with imaging modality if clinically indicated 2. Poor exercise capacity.
[2020-10-23] MEDS ORDERED: HEPARIN SODIUM 1,000 UN/ML (10ML VL) IV PRN (21:47)
[2020-10-23] MEDS: PROPRANOLOL 20 MG TAB PO SCH (21:59)
[2020-10-24] MEDS ORDERED: HEPARIN SODIUM,PORCINE 2,500 UNIT in SODIUM CHLORIDE 0.9% 250 ML IRRIGATION PRN (07:00)
[2020-10-24] MEDS ORDERED: HEPARIN SODIUM,PORCINE 10,000 UNIT in SODIUM CHLORIDE 0.9% 1,000 ML IRRIGATION PRN (07:00)
[2020-10-24] MEDS ORDERED: ALPRAZolam 0.5 MG TAB PO PRN (08:18)
[2020-10-24] MEDS ORDERED: NITROGLYCERIN SL TABS 0.4 MG TAB SUBLINGUAL PRN (08:18)
[2020-10-24] MEDS ORDERED: ATORVASTATIN 80 MG TAB PO STA (08:18)
[2020-10-24] MEDS ORDERED: ASPIRIN 325 MG TAB PO STA (08:18)
[2020-10-24] MEDS ORDERED: ALPRAZolam 0.25 MG TAB PO PRN (08:18)
[2020-10-24] MEDS ORDERED: SODIUM CHLORIDE 0.9% 1,000 ML in EMPTY BAG 1 BAG IV ONE (08:18)
[2020-10-24] MEDS ORDERED: ASPIRIN 81 MG PO SCH (09:00)
[2020-10-24] MEDS ORDERED: ASPIRIN 325 MG TAB PO SCH (09:00)
--- NOTE | 2020-10-24 10:00 | P.HPIM ---
History of Present Illness H&P Date: 10/24/20 Chief Complaint: Unstable angina This is a 60-year-old female patient who presented to the ER after having an abnormal stress test completed this week. Patient reports that she's had ongoing dyspnea and low energy over the past year which warranted a stress test to be completed. Patient does have a past medical history of hypertension and essential tremor. Patient denies nicotine dependence. Chest x-ray was completed in ER showing borderline heart size no acute process seen. EKG completed showing normal sinus rhythm right bundle branch block. Troponins negative 3. Cardiology services have been consulted. 2-D echo has been ordered. Patient started on heparin drip. At this time patient denies chest pain or shortness of breath. Patient denies nausea vomiting or diarrhea. Patient denies any urinary burning or frequency Review of Systems Please refer to HPI otherwise unremarkable Past Medical History Past Medical History: Hypertension Additional Past Medical History / Comment(s): Essential Tremor. 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 History of Any Multi-Drug Resistant Organisms: None Reported Past Surgical History: Tonsillectomy Additional Past Surgical History / Comment(s): Colonoscopy approximately 2015. Past Anesthesia/Blood Transfusion Reactions: Motion Sickness Smoking Status: Never smoker - Past Family History Father Family Medical History: Cancer Additional Family Medical History / Comment(s): Gastric cancer. Mother Family Medical History: Cancer Additional Family Medical History / Comment(s): Breast cancer. Medications and Allergies Home Medications Medication Instructions Recorded Confirmed Type Propranolol [Inderal] 20 mg PO BID 05/22/19 10/23/20 History Allergies Allergy/AdvReac Type Severity Reaction Status Date / Time Penicillins Allergy Unknown Verified 10/23/20 15:17 Childhood Physical Exam Vitals: Vital Signs Temp Pulse Pulse Resp BP BP Pulse Ox 10/24/20 08:00 17 10/24/20 07:00 97.8 F 52 L 17 126/82 93 L 10/24/20 02:00 97.8 F 56 L 18 112/69 96 10/23/20 19:39 98.2 F 59 L 18 142/91 96 10/23/20 19:28 62 16 10/23/20 16:29 98 F 62 16 138/83 96 10/23/20 16:15 97.8 F 63 18 145/72 98 10/23/20 14:42 63 18 134/72 96 10/23/20 13:32 98.6 F 75 18 154/71 97 Intake and Output 10/23/20 10/24/20 10/24/20 22:59 06:59 14:59 Intake Total 265.167 81.002 Balance 265.167 81.002 Intake: Intake, IV Titration 65.167 81.002 Amount Heparin Sod,Pork in 0.45% 65.167 81.002 NaCl 25,000 unit In 0.45 % NaCl 1 250ml.bag @ 8. 479 UNITS/KG/HR 10 mls/hr IV .Q24H [facility] Rx#: [id number] Oral 200 0 Other: Voiding Method Toilet Toilet # Voids 1 2 Weight 117.934 kg Head normocephalic Neck supple Lungs clear to auscultation bilaterally no wheezing or crackles Heart regular rate and rhythm S1-S2, no rub or gallop Abdomen is soft nontender nondistended positive bowel sounds no hepatosplenomegaly Extremities no edema Neuro alert and orientated to 3 Results CBC & Chem 7: 10/23/20 13:51 10/23/20 13:59 Labs: Abnormal Lab Results - Last 24 Hours (Table) 10/23/20 10/23/20 10/23/20 Range/Units 13:51 13:51 13:59 WBC 12.2 H (3.8-10.6) k/uL APTT 20.2 L (22.0-30.0) sec D-Dimer 0.84 H (<0.60) mg/L FEU Chloride 109 H (98-107) mmol/L Carbon Dioxide 21 L (22-30) mmol/L BUN 21 H (7-17) mg/dL Glucose 105 H (74-99) mg/dL 10/24/20 Range/Units 02:44 WBC (3.8-10.6) k/uL APTT 49.4 H (22.0-30.0) sec D-Dimer (<0.60) mg/L FEU Chloride (98-107) mmol/L Carbon Dioxide (22-30) mmol/L BUN (7-17) mg/dL Glucose (74-99) mg/dL Assessment and Plan Assessment: 1. Unstable angina with abnormal stress test. Cardiology services have been consulted. Patient started on heparin drip. 2. History of essential hypertension 3. Essential tremor Cardiology services have been consulted 2-D echo ordered Time with Patient: Greater than 30 (Greater than 60% of the total time spent in counseling and coordination of care)
[2020-10-24] MEDS: PROPRANOLOL 20 MG TAB PO SCH ×2 (10:02→20:41)
--- NOTE | 2020-10-24 10:20 | P.CRDCN ---
History of Present Illness Consult date: 10/24/20 History of present illness: HISTORY OF PRESENT ILLNESS: This is a 60-year-old female with a past medical history significant for hypertension and essential tremors. Patient denies any cardiac history and does not follow with a surveillance operator. We have been asked to see the patient in consultation for abnormal stress test. Patient examined at the bedside. Patient reports she has been having dyspnea with exertion since the summer. She states she had some issues with her insurance and did not have testing completed at that time. However she recently saw her primary care physician and a stress test was ordered. Patient underwent nuclear stress test on 10/22/2020 revealing stress-induced ischemic changes at the cardiac apex and likely within the distal anterior wall from the midportion to the apex. Dyskinesias present through th mile levels. At the time of my examination, the patient reports mild pain to the left lower chest and armpit. The pain is not worse with deep inspiration or with chest wall palpation. She denies any radiation of the pain to her jaw, back, or arm, she denies any shortness of breath. She denies any nausea or vomiting. She denies any diaphoresis. EKG reveals sinus mechanism with right bundle-branch block Chest xray borderline heart size. No acute process seen. Laboratory data: WBC 12.2. Hemoglobin 13.8. Platelet count 253. D-dimer 0.84. Sodium 140. Potassium 4.9. BUN 21. Creatinine 0.5. Magnesium 2.1. ProBNP 76. Troponin negative 3. Current home cardiac medications include propanolol 20 mg twice a day REVIEW OF SYSTEMS: At the time of my exam: CONSTITUTIONAL: Denies fever or chills. HEENT: Denies blurred vision, vision changes, or eye pain. Denies hemoptysis CARDIOVASCULAR: Reports mild chest pain. Denies orthopnea. Denies PND. Denies pa lpitations RESPIRATORY: Denies shortness of breath. GASTROINTESTINAL: Denies abdominal pain. Denies nausea or vomiting. HEMATOLOGIC: Denies bleeding disorders. GENITOURINARY: Denies any blood in urine. SKIN: Denies pruitis. Denies rash. PHYSICAL EXAM: VITAL SIGNS: Reviewed. GENERAL: Well-developed in no acute distress. HEENT: Head is normocephalic. Pupils are equal, round. Sclerae anicteric. Mucous membranes of the mouth are moist. Neck supple. No JVD or thyromegaly LUNGS: Respirations even and unlabored. Lungs essentially clear to auscultation bilaterally. HEART: Regular rate and rhythm. S1 and S2 heard. ABDOMEN: Soft. Nondistended. Nontender. EXTREMITIES: Normal range of motion. No clubbing or cyanosis. Peripheral pulses intact. No lower extremity edema NEUROLOGIC: Awake and alert. Oriented x 3. ASSESSMENT: Exertional dyspnea 1 year Abnormal nuclear stress test Hypertension Essential tremors Morbid obesity: BMI 44.6 PLAN: Obtain 2D echo to assess cardiac structure and function Resume home dose of Propranolol Add aspirin 81mg daily Discontinue IV heparin Obtain lipid panel Patient to undergo cardiac catheterization today with Dr. Albarran Further recommendations pending patient's course Nurse practitioner note has been reviewed by physician. Signing provider agrees with the documented findings, assessment, and plan of care. Past Medical History Past Medical History: Hypertension Additional Past Medical History / Comment(s): Essential Tremor. 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 History of Any Multi-Drug Resistant Organisms: None Reported Past Surgical History: Tonsillectomy Additional Past Surgical History / Comment(s): Colonoscopy approximately 2015. Past Anesthesia/Blood Transfusion Reactions: Motion Sickness Smoking Status: Never smoker - Past Family History Father Family Medical History: Cancer Additional Family Medical History / Comment(s): Gastric cancer. Mother Family Medical History: Cancer Additional Family Medical History / Comment(s): Breast cancer. Medications and Allergies Home Medications Medication Instructions Recorded Confirmed Type Propranolol [Inderal] 20 mg PO BID 05/22/19 10/23/20 History Allergies Allergy/AdvReac Type Severity Reaction Status Date / Time Penicillins Allergy Unknown Verified 10/23/20 15:17 Childhood Physical Exam Vitals: Vital Signs Temp Pulse Pulse Resp BP BP Pulse Ox 10/24/20 02:00 97.8 F 56 L 18 112/69 96 10/23/20 19:39 98.2 F 59 L 18 142/91 96 10/23/20 19:28 62 16 10/23/20 16:29 98 F 62 16 138/83 96 10/23/20 16:15 97.8 F 63 18 145/72 98 10/23/20 14:42 63 18 134/72 96 10/23/20 13:32 98.6 F 75 18 154/71 97 Intake and Output 10/23/20 10/24/20 10/24/20 22:59 06:59 14:59 Intake Total 265.167 81.002 Balance 265.167 81.002 Intake: Intake, IV Titration 65.167 81.002 Amount Heparin Sod,Pork in 0.45% 65.167 81.002 NaCl 25,000 unit In 0.45 % NaCl 1 250ml.bag @ 8. 479 UNITS/KG/HR 10 mls/hr IV .Q24H [facility] Rx#: [id number] Oral 200 0 Other: Voiding Method Toilet # Voids 1 2 Weight 117.934 kg Results 10/23/20 13:51 10/23/20 13:59 Cardiac Enzymes 10/23/20 10/23/20 10/23/20 Range/Units 13:59 13:59 16:35 AST 31 (14-36) U/L Troponin I <0.012 <0.012 (0.000-0.034) ng/mL 10/23/20 Range/Units 20:38 AST (14-36) U/L Troponin I <0.012 (0.000-0.034) ng/mL Coagulation 10/23/20 10/23/20 10/24/20 Range/Units 13:51 20:38 02:44 PT 9.9 (9.0-12.0) sec APTT 20.2 L 28.0 49.4 H (22.0-30.0) sec CBC 10/23/20 Range/Units 13:51 WBC 12.2 H (3.8-10.6) k/uL RBC 4.80 (3.80-5.40) m/uL Hgb 13.8 (11.4-16.0) gm/dL Hct 42.0 (34.0-46.0) % Plt Count 253 (150-450) k/uL Comprehensive Metabolic Panel 10/23/20 Range/Units 13:59 Sodium 140 (137-145) mmol/L Potassium 4.9 (3.5-5.1) mmol/L Chloride 109 H (98-107) mmol/L Carbon Dioxide 21 L (22-30) mmol/L BUN 21 H (7-17) mg/dL Creatinine 0.85 (0.52-1.04) mg/dL Glucose 105 H (74-99) mg/dL Calcium 9.9 (8.4-10.2) mg/dL AST 31 (14-36) U/L ALT 29 (4-34) U/L Alkaline Phosphatase 75 (38-126) U/L Total Protein 7.0 (6.3-8.2) g/dL Albumin 4.2 (3.5-5.0) g/dL Current Medications Generic Name Dose Route Start Last Admin Trade Name Freq PRN Reason Stop Dose Admin Aspirin 81 mg 10/24/20 09:00 Aspirin 81 Mg PO DAILY [facility] Heparin Sodium (Porcine) 0 unit 10/23/20 21:47 10/23/20 21:59 Heparin Sodium 1,000 Un/Ml (10ml Vl) IV 4,000 unit PER PROTOCOL PRN Administration Low PTT Protocol Heparin Sodium/Sodium Chloride 250 mls @ 10 mls/hr 10/23/20 15:00 10/24/20 03:45 25,000 unit/ Sodium Chloride IV 11.479 units/kg/hr .Q24H [facility] 13.538 mls/hr Titration Protocol 8.479 UNITS/KG/HR Sodium Chloride 1,000 mls @ 20 mls/hr 10/23/20 15:00 10/23/20 15:18 Saline 0.9% IV 20 mls/hr .Q24H [facility] Administration Nitroglycerin 0.4 mg 10/23/20 14:55 Nitroglycerin Sl Tabs 0.4 Mg Tab SUBLINGUAL Q5M PRN Chest Pain Propranolol HCl 20 mg 10/23/20 21:00 10/23/20 21:59 Propranolol 20 Mg Tab PO 20 mg BID ARLENE Administration Intake and Output 10/23/20 10/24/20 10/24/20 22:59 06:59 14:59 Intake Total 265.167 81.002 Balance 265.167 81.002 Intake: Intake, IV Titration 65.167 81.002 Amount Heparin Sod,Pork in 0.45% 65.167 81.002 NaCl 25,000 unit In 0.45 % NaCl 1 250ml.bag @ 8. 479 UNITS/KG/HR 10 mls/hr IV .Q24H [facility] Rx#: [id number] Oral 200 0 Other: Voiding Method Toilet # Voids 1 2 Weight 117.934 kg 10/23/20 13:51 10/23/20 13:59
[2020-10-24 11:13] LABS: Basophils # (A) 0.1 k/uL (0-0.2); Basophils % (A) 1 %; Eosinophils # (A) 0.6 k/uL (0-0.7); Eosinophils % (A) 5 %; HCT 39.6 % (34.0-46.0); HGB 12.9 gm/dL (11.4-16.0); Lymphocytes # (A) 4.3 k/uL (1.0-4.8); Lymphocytes % (A) 39 %; MCH 28.8 pg (25.0-35.0); MCHC 32.5 g/dL (31.0-37.0); MCV 88.6 fL (80.0-100.0); Mean Platelet Volume 9.1; Monocytes # (A) 0.7 k/uL (0-1.0); Monocytes % (A) 6 %; Neutrophils % (A) 45 %; Platelet Count 244 k/uL (150-450); RBC 4.47 m/uL (3.80-5.40); RDW 14.6 % (11.5-15.5); WBC 10.9 k/uL (3.8-10.6)
[2020-10-24 12:39] LABS: Appearance,Urine Cloudy (Clear); Bacteria,Urine Rare /hpf; Bilirubin,Urine Negative (Negative); Blood,Urine Negative (Negative); Color,Urine Yellow; Glucose,Urine (UA) Negative (Negative); Ketones,Urine Negative (Negative); Leukocyte Esterase,Urine Negative (Negative); Mucus,Urine Rare /hpf; Nitrite,Urine Negative (Negative); Protein,Urine Negative (Negative); RBC,Urine <1 /hpf (0-5); Specific Gravity,Urine 1.018 (1.001-1.035); Squamous Epithelial Cell,Urine 4 /hpf (0-4); Urobilinogen,Urine <2.0 mg/dL (<2.0); WBC,Urine 2 /hpf (0-5)
[2020-10-24] MEDS ORDERED: LIDOCAINE 1% INJ 10MG/ML (20 ML MDV) ONE (12:39)
[2020-10-24] MEDS ORDERED: VERAPAMIL 2.5 MG/ML 2 ML AMP ONE (12:39)
[2020-10-24] MEDS ORDERED: IV FLUID CONTINUATION 1,000 ML IV ONE (12:40)
[2020-10-24] MEDS ORDERED: MIDAZOLAM 2 MG/2 ML VIAL IV ONE (12:47)
[2020-10-24] MEDS ORDERED: fentaNYL (PF) 50 MCG/ML 2 ML AMP IV ONE (12:47)
[2020-10-24] MEDS ORDERED: LIDOCAINE 1% INJ 10MG/ML (20 ML MDV) SQ ONE (12:47)
[2020-10-24] MEDS ORDERED: fentaNYL (PF) 50 MCG/ML 2 ML AMP ONE (12:48)
[2020-10-24] MEDS ORDERED: VERAPAMIL SYRINGE (5 MG/10 ML) INTRAARTER ONE (12:50)
[2020-10-24] MEDS ORDERED: HEPARIN SODIUM 1,000 UN/ML (10ML VL) IV ONE (12:51)
[2020-10-24] MEDS ORDERED: IOPAMIDOL-370 125ML BTL INJ ONE (12:58)
--- NOTE | 2020-10-24 16:48 | ECHOF ---
Referral Reason:LV function MEASUREMENTS -------- HEIGHT: 162.6 cm WEIGHT: 117.9 kg BP: 126/82 RVIDd: 3.1 cm (< 3.3) IVSd: 1.2 cm (0.6 - 1.1) LVIDd: 4.9 cm (3.9 - 5.3) LVPWd: 1.2 cm (0.6 - 1.1) IVSs: 1.6 cm LVIDs: 2.7 cm LVPWs: 1.8 cm LAESV Index (A-L): 27.66 ml/m Ao Diam: 3.2 cm (2.0 - 3.7) AV Cusp: 2.1 cm (1.5 - 2.6) LA Diam: 4.4 cm (2.7 - 3.8) MV EXCURSION: 16.144 mm (> 18.000) MV EF SLOPE: 89 mm/s (70 - 150) EPSS: 0.7 cm MV E Maicol: 0.97 m/s MV DecT: 356 ms MV A Maicol: 0.72 m/s MV E/A Ratio: 1.35 RAP: 5.00 mmHg RVSP: 18.88 mmHg FINDINGS -------- Sinus rhythm. This was a technically difficult study with suboptimal apical views. The left ventricular size is normal. There is mild concentric left ventricular hypertrophy. Overa ll left ventricular systolic function is normal with, an EF between 55 - 60 %. The diastolic fillin g pattern is normal for the age of the patient 15.61. The right ventricle is normal in size. Normal LA size by volume 22+/-6 ml/m2. The right atrial size is normal. 5.0mg of Lumason was utilized for enhancement of images Interatrial and interventricular septum intact. The aortic valve is trileaflet and appears structurally normal. There is no evidence of aortic regu rgitation. There is no evidence of aortic stenosis. Mild mitral regurgitation is present. Mild tricuspid regurgitation present. There is no evidence of pulmonary hypertension. The right v entricular systolic pressure, as measured by Doppler, is 18.88mmHg. There is no pulmonic regurgitation present. The aortic root size is normal. IVC Not well visulized. There is no pericardial effusion. CONCLUSIONS -------- 1. The left ventricular size is normal. 2. There is mild concentric left ventricular hypertrophy. 3. Overall left ventricular systolic function is normal with, an EF between 55 - 60 %. 4. The diastolic filling pattern is normal for the age of the patient 15.61 5. Mild mitral regurgitation is present. 6. Mild tricuspid regurgitation present. FORENSIC CHEMIST: Germania Valle RDCS
[2020-10-24 18:43] LABS: Chol/HDL Ratio 5.38; LDL Cholesterol,Calculated 99.2 mg/dL (0.0-131.0); VLDL Calculation 27.8 mg/dL (5.00-40.00)
[2020-10-24] MEDS: SODIUM CHLORIDE 0.9% 1,000 ML IV SCH (20:40)
--- NOTE | 2020-10-24 21:36 | P.PN ---
Subjective PROCEDURES PERFORMED: Left heart catheterization, bilateral coronary angiography INDICATION: Abnormal stress test HISTORY: Patient is a pleasant 60-year-old female who has been having intermittent chest pain for approximately one year however also has been having dyspnea on exertion. She did have stress test performed which showed concern of ischemia and therefore heart catheterization was recommended. CONSENT:I have discussed the risks, benefits and alternative therapies for the above-mentioned procedure and for both sedation/analgesia as well as necessary blood product administration, if indicated, as they pertain to this patient. Th e patient has indicated understanding and acceptance of the risks and procedures discussed. PROCEDURE: After the risks, benefits and alternatives of the above mentioned procedure explained in detail with the patient, informed consent was obtained. Patient was taken to the catheterization lab and prepped and draped in usual fashion. 1% lidocaine was used to anesthetize the right radial artery. A 6- Marshallese sheath was placed in the right radial artery using modified Seldinger technique. Left coronary angiography was performed with a 5-Marshallese JL 3.5 catheter and right coronary angiography was performed with a 5-Marshallese JR5 catheter in various views. A 5-Marshallese FR5 catheter was inserted into the left ventricle and pressure measurements were obtained. The right radial sheath was removed and a TR band was placed with hemostasis achieved. The patient tolerated the procedure well. Patient was transported back to the post catheterization holding area in stable condition. Conscious Sedation: Patient was monitored under the direct supervision of vision of myself for conscious sedation using Versed and fentanyl for a total duration of 15 minutes HEMODYNAMICS: Ao: 148/67 LV: 145/2, LVEDP 12mmHg SELECTIVE CORONARY ARTERIOGRAPHY: LEFT MAIN: The left main is a large caliber vessel which bifurcates into the LAD and circumflex. There is no significant stenosis. LEFT ANTERIOR DESCENDING CORONARY ARTERY: LAD is a large caliber vessel which wraps around to the apex. There is a proximal LAD 10% stenosis and otherwise no stenosis. LEFT CIRCUMFLEX CORONARY ARTERY: Left circumflex is a moderate caliber vessel without significant stenosis. There is a "high OM", nearly a ramus. RIGHT CORONARY ARTERY: The right coronary artery is a large caliber vessel which gives off a PDA and PLV branch and is the dominant vessel. There is no significant stenosis. FINAL IMPRESSION: 1. Relatively normal coronary arteries with only proximal LAD 10% stenosis as described above. 2. Normal left sided filling pressures PLAN: 1. Aggressive risk factor modification per most recent ACC/AHA guidelines. Objective - Vital Signs Vital signs: Vital Signs Temp 97.8 F 10/24/20 19:10 Pulse 59 L 10/24/20 20:00 Resp 16 10/24/20 20:00 BP 136/88 10/24/20 19:10 Pulse Ox 93 L 10/24/20 19:10 Intake & Output 10/24/20 10/24/20 10/25/20 06:59 18:59 06:59 Intake Total 751.736 9188 Output Total 300 Balance 362.949 6395 Intake: IV 1100 Sodium Chloride 0.9% 1, 1000 000 ml In Empty Bag 1 bag @ 1 ML/KG/HR 117.934 mls /hr IV .Q8H29[facility] Rx#: [id number] Intake, IV Titration 146.169 Amount Heparin Sod,Pork in 0.45% 146.169 NaCl 25,000 unit In 0.45 % NaCl 1 250ml.bag @ 8. 479 UNITS/KG/HR 10 mls/hr IV .Q24H [facility] Rx#: [id number] Oral 0 477 Output: Urine 300 Other: Voiding Method Toilet Toilet Toilet # Voids 2 1 - Labs CBC & Chem 7: 10/24/20 02:55 10/23/20 13:59 Labs: Abnormal Lab Results - Last 24 Hours (Table) 10/24/20 10/24/20 10/24/20 Range/Units 02:44 02:44 02:55 WBC 10.9 H (3.8-10.6) k/uL APTT 49.4 H (22.0-30.0) sec HDL Cholesterol 29.0 L (40.0-60.0) mg/dL Urine Appearance (Clear) Urine Bacteria (None) /hpf Urine Mucus (None) /hpf 10/24/20 Range/Units 12:20 WBC (3.8-10.6) k/uL APTT (22.0-30.0) sec HDL Cholesterol (40.0-60.0) mg/dL Urine Appearance Cloudy H (Clear) Urine Bacteria Rare H (None) /hpf Urine Mucus Rare H (None) /hpf
[2020-10-25 07:31] LABS: African American GFR (CKD) 70.9 (60.0-200.0); Albumin/Globulin Ratio 1.82 (1.60-3.17); Anion Gap 13.4 mmol/L (4.00-12.00); Calcium 8.6 mg/dL (8.7-10.3); Carbon Dioxide 20.6 mmol/L (21.6-31.8); Globulin 2.2 g/dL (1.6-3.3); Non-African American GFR(CKD) 61.2 (60.0-200.0); Potassium 4.3 mmol/L (3.5-5.5); Total Bilirubin 0.3 mg/dL (0.2-1.2); Total Protein 6.2 g/dL (6.2-8.2)
[2020-10-25] MEDS: ASPIRIN 81 MG PO SCH (08:02)
[2020-10-25] MEDS: PROPRANOLOL 20 MG TAB PO SCH ×2 (08:02→20:57)
[2020-10-25 09:10] LABS: Basophils # (A) 0.04 X 10*3/uL (0.00-0.10); Basophils % (A) 0.4 %; Eosinophils # (A) 0.36 X 10*3/uL (0.04-0.35); Eosinophils % (A) 3.8 %; HCT 39.1 % (37.2-46.3); Lymphocytes # (A) 2.87 X 10*3/uL (0.90-5.00); Lymphocytes % (A) 30.4 %; MCH 27.4 pg (27.0-32.0); MCHC 30.7 g/dL (32.0-37.0); MCV 89.3 fL (80.0-97.0); Mean Platelet Volume 11.5 fL (9.5-12.2); Monocytes # (A) 0.97 X 10*3/uL (0.20-1.00); Monocytes % (A) 10.3 %; Neutrophils # (A) 5.15 X 10*3/uL (1.80-7.70); Neutrophils % (A) 54.7 %; Platelet Count 220 X 10*3/uL (140-440); RBC 4.38 X 10*6/uL (4.10-5.20); RDW 14.2 % (11.5-14.5); WBC 9.43 X 10*3/uL (4.50-10.00)
[2020-10-25 09:47] LABS: African American GFR (CKD) 80.5 (60.0-200.0); Albumin 3.8 g/dL (3.80-4.90); Albumin/Globulin Ratio 1.73 (1.60-3.17); Anion Gap 7.6 mmol/L (4.00-12.00); BUN/Creat Ratio 17.78 Ratio (12.00-20.00); Calcium 8.7 mg/dL (8.7-10.3); Carbon Dioxide 25.4 mmol/L (21.6-31.8); Globulin 2.2 g/dL (1.6-3.3); Non-African American GFR(CKD) 69.5 (60.0-200.0); Potassium 4.2 mmol/L (3.5-5.5); Total Bilirubin 0.4 mg/dL (0.2-1.2)
--- NOTE | 2020-10-25 10:54 | P.CARDCATH ---
Description of Procedure: Date of procedure: 10/24/2020 PROCEDURES PERFORMED: Left heart catheterization, bilateral coronary angiography INDICATION: Abnormal stress test HISTORY: Patient is a pleasant 60-year-old female who has been having intermittent chest pain for approximately one year however also has been having dyspnea on exertion. She did have stress test performed which showed concern of ischemia and therefore heart catheterization was recommended. CONSENT:I have discussed the risks, benefits and alternative therapies for the above-mentioned procedure and for both sedation/analgesia as well as necessary blood product administration, if indicated, as they pertain to this patient. The patient has indicated understanding and acceptance of the risks and procedures discussed. PROCEDURE: After the risks, benefits and alternatives of the above mentioned procedure explained in detail with the patient, informed consent was obtained. Patient was taken to the catheterization lab and prepped and draped in usual fashion. 1% lidocaine was used to anesthetize the right radial artery. A 6- Turkmen sheath was placed in the right radial artery using modified Seldinger technique. Left coronary angiography was performed with a 5-Turkmen JL 3.5 catheter and right coronary angiography was performed with a 5-Turkmen JR5 catheter in various views. A 5-Turkmen FR5 catheter was inserted into the left ventricle and pressure measurements were obtained. The right radial sheath was removed and a TR band was placed with hemostasis achieved. The patient tolerated the procedure well. Patient was transported back to the post catheterization holding area in stable condition. Conscious Sedation: Patient was monitored under the direct supervision of vision of myself for conscious sedation using Versed and fentanyl for a total duration of 15 minutes HEMODYNAMICS: Ao: 148/67 LV: 145/2, LVEDP 12mmHg SELECTIVE CORONARY ARTERIOGRAPHY: LEFT MAIN: The left main is a large caliber vessel which bifurcates into the LAD and circumflex. There is no significant stenosis. LEFT ANTERIOR DESCENDING CORONARY ARTERY: LAD is a large caliber vessel which wraps around to the apex. There is a proximal LAD 10% stenosis and otherwise no stenosis. LEFT CIRCUMFLEX CORONARY ARTERY: Left circumflex is a moderate caliber vessel without significant stenosis. There is a "high OM", nearly a ramus. RIGHT CORONARY ARTERY: The right coronary artery is a large caliber vessel which gives off a PDA and PLV branch and is the dominant vessel. There is no signif icant stenosis. FINAL IMPRESSION: 1. Relatively normal coronary arteries with only proximal LAD 10% stenosis as described above. 2. Normal left sided filling pressures PLAN: 1. Aggressive risk factor modification per most recent ACC/AHA guidelines.
--- NOTE | 2020-10-25 10:56 | P.PN ---
Subjective HISTORY OF PRESENT ILLNESS: This is a 60-year-old female with a past medical history significant for hypertension and essential tremors. 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 We have been asked to see the patient in consultation for abnormal stress test. Patient examined at the bedside. Patient reports she has been having dyspnea with exertion since the summer. She states she had some issues with her insurance and did not have testing completed at that time. However she recently saw her primary care physician and a stress test was ordered. Patient underwent nuclear stress test on 10/22/2020 revealing stress-induced ischemic changes at the cardiac apex and likely within the distal anterior wall from the midportion to the apex. Dyskinesias present through these levels. At the time of my examination, the patient reports mild pain to the left lower chest and armpit. The pain is not worse with deep inspiration or with chest wall palpation. She denies any radiation of the pain to her jaw, back, or arm, she denies any shortness of breath. She denies any nausea or vomiting. She denies any diaphoresis. 10/25 Patient seen and examined. Patient denies any chest pain or pressure. No shortness breath. She underwent left heart catheterization yesterday which showed only minimal proximal LAD 10% stenosis, normal left-sided filling pressures. Left heart catheterization showed preserved ejection fraction without significant valvular disease. PHYSICAL EXAM: VITAL SIGNS: Reviewed. GENERAL: Well-developed in no acute distress. HEENT: Head is normocephalic. Pupils are equal, round. Sclerae anicteric. Mucous membranes of the mouth are moist. Neck supple. No JVD or thyromegaly LUNGS: Respirations even and unlabored. Lungs essentially clear to auscultation bilaterally. HEART: Regular rate and rhythm. S1 and S2 heard. ABDOMEN: Soft. Nondistended. Nontender. EXTREMITIES: Normal range of motion. No clubbing or cyanosis. Peripheral pulses intact. No lower extremity edema NEUROLOGIC: Awake and alert. Oriented x 3. ASSESSMENT: Exertional dyspnea 1 year Abnormal nuclear stress test Hypertension Essential tremors Morbid obesity: BMI 44.6 Suspected Sleep apnea PLAN: 2-D echo with preserved ejection fraction and left heart catheterization showing only minimal 10% proximal LAD stenosis. Do not suspect cardiac source of dyspnea with additional left-sided filling pressure is normal. Patient may have sleep apnea and additionally may have some degree of lung disease. May also be related to deconditioning. Patient stable for discharge from a cardiology standpoint. Objective - Vital Signs Vital signs: Vital Signs Temp 97.4 F L 10/25/20 07:00 Pulse 50 L 10/25/20 07:23 Resp 16 10/25/20 07:23 BP 116/77 10/25/20 07:00 Pulse Ox 97 10/25/20 07:00 Intake & Output 10/24/20 10/25/20 10/25/20 18:59 06:59 18:59 Intake Total 1577 236 Output Total 300 300 Balance 1277 -64 Intake: IV 1100 Sodium Chloride 0.9% 1, 1000 000 ml In Empty Bag 1 bag @ 1 ML/KG/HR 117.934 mls /hr IV .Q8H29M [facility] Rx#: [id number] Oral 477 236 Output: Urine 300 300 Other: Voiding Method Toilet Toilet Toilet # Voids 1 1 2 - Labs CBC & Chem 7: 10/25/20 02:33 10/25/20 02:33 Labs: Abnormal Lab Results - Last 24 Hours (Table) 10/24/20 10/24/20 10/24/20 Range/Units 02:44 02:55 02:55 WBC 10.9 H (3.8-10.6) k/uL MCHC (32.0-37.0) g/dL Eosinophils # (0.04-0.35) X 10*3/uL APTT (22.0-30.0) sec Carbon Dioxide 20.6 L (21.6-31.8) mmol/L Anion Gap 13.40 H (4.00-12.00) mmol/L Calcium 8.6 L (8.7-10.3) mg/dL Total Protein (6.2-8.2) g/dL HDL Cholesterol 29.0 L (40.0-60.0) mg/dL Urine Appearance (Clear) Urine Bacteria (None) /hpf Urine Mucus (None) /hpf 10/24/20 10/25/20 10/25/20 Range/Units 12:20 02:33 02:33 WBC (3.8-10.6) k/uL MCHC 30.7 L (32.0-37.0) g/dL Eosinophils # 0.36 H (0.04-0.35) X 10*3/uL APTT 20.3 L (22.0-30.0) sec Carbon Dioxide (21.6-31.8) mmol/L Anion Gap (4.00-12.00) mmol/L Calcium (8.7-10.3) mg/dL Total Protein (6.2-8.2) g/dL HDL Cholesterol (40.0-60.0) mg/dL Urine Appearance Cloudy H (Clear) Urine Bacteria Rare H (None) /hpf Urine Mucus Rare H (None) /hpf 10/25/20 Range/Units 02:33 WBC (3.8-10.6) k/uL MCHC (32.0-37.0) g/dL Eosinophils # (0.04-0.35) X 10*3/uL APTT (22.0-30.0) sec Carbon Dioxide (21.6-31.8) mmol/L Anion Gap (4.00-12.00) mmol/L Calcium (8.7-10.3) mg/dL Total Protein 6.0 L (6.2-8.2) g/dL HDL Cholesterol (40.0-60.0) mg/dL Urine Appearance (Clear) Urine Bacteria (None) /hpf Urine Mucus (None) /hpf
[2020-10-25] MEDS: SODIUM CHLORIDE 0.9% 1,000 ML IV SCH (13:34)
[2020-10-25] MEDS ORDERED: SODIUM CHLORIDE 0.9% 1,000 ML IV STA (13:53)
--- NOTE | 2020-10-25 13:58 | P.PN ---
Subjective Progress Note Date: 10/25/20 This is a 60-year-old female patient who presented to the ER after having an abnormal stress test completed this week. Patient reports that she's had ongoing dyspnea and low energy over the past year which warranted a stress test to be completed. Patient does have a past medical history of hypertension and essential tremor. Patient denies nicotine dependence. Chest x-ray was completed in ER showing borderline heart size no acute process seen. EKG completed showing normal sinus rhythm right bundle branch block. Troponins negative 3. Cardiology services have been consulted. 2-D echo has been ordered. Patient started on heparin drip. At this time patient denies chest pain or shortness of breath. Patient denies nausea vomiting or diarrhea. Patient denies any urinary burning or frequency Objective - Vital Signs Vital signs: Vital Signs Temp 97.4 F L 10/25/20 07:00 Pulse 50 L 10/25/20 07:23 Resp 16 10/25/20 07:23 BP 116/77 10/25/20 07:00 Pulse Ox 97 10/25/20 07:00 Intake & Output 10/24/20 10/25/20 10/25/20 18:59 06:59 18:59 Intake Total 1577 236 Output Total 300 300 Balance 1277 -64 Intake: IV 1100 Sodium Chloride 0.9% 1, 1000 000 ml In Empty Bag 1 bag @ 1 ML/KG/HR 117.934 mls /hr IV .Q8H29M [facility] Rx#: [id number] Oral 477 236 Output: Urine 300 300 Other: Voiding Method Toilet Toilet Toilet # Voids 1 1 2 - Exam In general patient is alert and oriented x 3 in no distress HEENT head normocephalic and atraumatic Neck is supple no JVD no goiter no lymphadenopathy no carotid bruit Chest examination is clear to auscultation no crackles no wheezing Cardiac exam reveals regular heart sounds S1 and S2 no gallops no murmurs Abdomen is soft nontender no organomegaly with normal bowel sounds Extremity exam reveals no edema no cyanosis or clubbing Neurological examination reveals no gross focal deficits - Labs CBC & Chem 7: 10/25/20 02:33 10/25/20 02:33 Labs: Abnormal Lab Results - Last 24 Hours (Table) 10/24/20 10/24/20 10/25/20 Range/Units 02:44 02:55 02:33 MCHC (32.0-37.0) g/dL Eosinophils # (0.04-0.35) X 10*3/uL APTT 20.3 L (22.0-30.0) sec Carbon Dioxide 20.6 L (21.6-31.8) mmol/L Anion Gap 13.40 H (4.00-12.00) mmol/L Calcium 8.6 L (8.7-10.3) mg/dL Total Protein (6.2-8.2) g/dL HDL Cholesterol 29.0 L (40.0-60.0) mg/dL 10/25/20 10/25/20 Range/Units 02:33 02:33 MCHC 30.7 L (32.0-37.0) g/dL Eosinophils # 0.36 H (0.04-0.35) X 10*3/uL APTT (22.0-30.0) sec Carbon Dioxide (21.6-31.8) mmol/L Anion Gap (4.00-12.00) mmol/L Calcium (8.7-10.3) mg/dL Total Protein 6.0 L (6.2-8.2) g/dL HDL Cholesterol (40.0-60.0) mg/dL Assessment and Plan Assessment: 1. Episodes of chest pain with abnormal stress test. Cardiology services have been consulted. Patient started on heparin drip. Cardiac catheterization done yesterday, and revealed normal coronary arteries with 10% stenosis in the LAD, patient also had elevated d-dimer on presentation, and continued to have chest pain during this admission, at this time will obtain bilateral lower extremity Doppler and CT angiogram of the chest to rule out pulmonary embolism, will also increase IV fluid to normal saline 75 mL/h due to need to use contrast material again, will monitor closely fold these tests are negative possible discharge to home tomorrow 2. History of essential hypertension 3. Essential tremor
--- NOTE | 2020-10-25 16:08 | CT ---
EXAMINATION TYPE: CT angio chest DATE OF EXAM: 10/25/2020 COMPARISON: None HISTORY: Elevated d dimer, SOB, Lt sided chest pain CT DLP: 518.2 mGycm Automated exposure control for dose reduction was used. CONTRAST: Performed with IV Contrast, patient injected with 100 mL of Isovue 370. There are 3-D post processed images. The lungs are clear of infiltrate. There is no evidence of a pulmonary mass. There is no pleural effu bri. Heart size is normal. There is no pericardial effusion. There is no mediastinal adenopathy. There are no hilar masses. Thoracic aorta is intact. There is no aneurysm or dissection. There is some fatty infiltration of the liver. There is some degenerative spurring in the thoracic spine. Sternum is intact. The ribs appear intact. There are small filling defects in the left lower lobe pulmonary artery in the lateral basal segment branch. IMPRESSION: There is evidence for small emboli in the left lower lobe pulmonary artery in the lateral basal segme nt.. Attempts were made to contact the floor to notify the result and this was unsuccessful.
--- NOTE | 2020-10-25 16:32 | US ---
EXAMINATION TYPE: US venous doppler duplex LE BI DATE OF EXAM: 10/25/2020 3:25 PM COMPARISON: NONE CLINICAL HISTORY: elevated D Dimer. elevated D dimer SIDE PERFORMED: Bilateral TECHNIQUE: The lower extremity deep venous system is examined utilizing real time linear array sonog ratna with graded compression, doppler sonography and color-flow sonography. VESSELS IMAGED: Common Femoral Vein Deep Femoral Vein Greater Saphenous Vein * Femoral Vein Popliteal Vein Small Saphenous Vein * Proximal Calf Veins (* superficial vessels) Right Leg: Negative for DVT Left Leg: Negative for DVT IMPRESSION: No evidence of deep vein thrombosis in both legs.
[2020-10-25] MEDS ORDERED: HEPARIN SODIUM 1,000 UN/ML (10ML VL) IV PRN (18:24)
[2020-10-25] MEDS ORDERED: HEPARIN SODIUM 1,000 UN/ML (10ML VL) IV ONE (18:24)
[2020-10-25 18:48] LABS: Basophils # (A) 0.1 k/uL (0-0.2); Basophils % (A) 1 %; Eosinophils # (A) 0.4 k/uL (0-0.7); Eosinophils % (A) 4 %; HCT 42.9 % (34.0-46.0); Lymphocytes % (A) 29 %; MCH 28.6 pg (25.0-35.0); MCHC 32.7 g/dL (31.0-37.0); MCV 87.3 fL (80.0-100.0); Mean Platelet Volume 8.1; Monocytes # (A) 0.7 k/uL (0-1.0); Monocytes % (A) 7 %; Neutrophils % (A) 58 %; Platelet Count 237 k/uL (150-450); RBC 4.91 m/uL (3.80-5.40); RDW 14.3 % (11.5-15.5); WBC 10.3 k/uL (3.8-10.6)
[2020-10-25 19:06] LABS: INR 0.9 (<1.2); Prothrombin Time 9.9 sec (9.0-12.0)
[2020-10-25 19:07] LABS: Partial Thromboplastin Time 20.3 sec (22.0-30.0)
[2020-10-25] MEDS: HEPARIN SOD,PORK IN 0.45% NACL 25,000 UNIT in 0.45% NACL 1 250ML.BAG IV SCH (19:14)
[2020-10-26 08:21] LABS: Basophils # (A) 0.1 k/uL (0-0.2); Basophils % (A) 1 %; Eosinophils # (A) 0.3 k/uL (0-0.7); Eosinophils % (A) 3 %; HCT 41.6 % (34.0-46.0); HGB 13.6 gm/dL (11.4-16.0); Lymphocytes % (A) 32 %; MCH 28.6 pg (25.0-35.0); MCHC 32.8 g/dL (31.0-37.0); MCV 87.1 fL (80.0-100.0); Mean Platelet Volume 7.8; Monocytes # (A) 0.6 k/uL (0-1.0); Monocytes % (A) 6 %; Neutrophils # (A) 5.4 k/uL (1.3-7.7); Neutrophils % (A) 56 %; Platelet Count 226 k/uL (150-450); RBC 4.77 m/uL (3.80-5.40); RDW 14.6 % (11.5-15.5); WBC 9.6 k/uL (3.8-10.6)
[2020-10-26] MEDS: PROPRANOLOL 20 MG TAB PO SCH ×2 (08:27→20:18)
[2020-10-26] MEDS: ASPIRIN 81 MG PO SCH (08:28)
[2020-10-26 09:39] LABS: ALT 33 U/L (4-34); AST 31 U/L (14-36); African American GFR (CKD) >90 (>60 ml/min/1.73 sqM); Albumin 3.9 g/dL (3.5-5.0); Albumin/Globulin Ratio 1.4; Alkaline Phosphatase 85 U/L (38-126); Anion Gap 7 mmol/L; Blood Urea Nitrogen 12 mg/dL (7-17); Calcium 9.5 mg/dL (8.4-10.2); Carbon Dioxide 23 mmol/L (22-30); Chloride 108 mmol/L (98-107); Globulin 2.7 g/dL; Glucose 108 mg/dL (74-99); Non-African American GFR(CKD) 80 (>60 ml/min/1.73 sqM); Potassium 4.4 mmol/L (3.5-5.1); Sodium 138 mmol/L (137-145); Total Bilirubin 0.3 mg/dL (0.2-1.3); Total Protein 6.6 g/dL (6.3-8.2)
--- NOTE | 2020-10-26 10:10 | P.PN ---
Subjective HISTORY OF PRESENT ILLNESS: This is a 60-year-old female with a past medical history significant for hypertension and essential tremors. Patient denies any cardiac history and does not follow with a electronic lab technician. We have been asked to see the patient in consultation for abnormal stress test. Patient examined at the bedside. Patient reports she has been having dyspnea with exertion since the summer. She states she had some issues with her insurance and did not have testing completed at that time. However she recently saw her primary care physician and a stress test was ordered. Patient underwent nuclear stress test on 10/22/2020 revealing stress-induced ischemic changes at the cardiac apex and likely within the distal anterior wall from the midportion to the apex. Dyskinesias present through these levels. At the time of my examination, the patient reports mild pain to the left lower chest and armpit. The pain is not worse with deep inspiration or with chest wall palpation. She denies any radiation of the pain to her jaw, back, or arm, she denies any shortness of breath. She denies any nausea or vomiting. She denies any diaphoresis. 10/25 Patient seen and examined. Patient denies any chest pain or pressure. No shortness breath. She underwent left heart catheterization yesterday which showed only minimal proximal LAD 10% stenosis, normal left-sided filling pressures. Left heart catheterization showed preserved ejection fraction without significant valvular disease. 10/26 Patient seen and examined. Patient initially with mildly elevated troponin of 0.84. Therefore lower extremity venous ultrasound was performed which showed no DVT as well as CT PE protocol which was read out as small emboli in the left lower lobe pulmonary artery and the lateral basal segment. Patient is maintained on heparin drip. PHYSICAL EXAM: VITAL SIGNS: Reviewed. GENERAL: Well-developed in no acute distress. HEENT: Head is normocephalic. Pupils are equal, round. Sclerae anicteric. Mucous membranes of the mouth are moist. Neck supple. No JVD or thyromegaly LUNGS: Respirations even and unlabored. Lungs essentially clear to auscultation bilaterally. HEART: Regular rate and rhythm. S1 and S2 heard. ABDOMEN: Soft. Nondistended. Nontender. EXTREMITIES: Normal range of motion. No clubbing or cyanosis. Peripheral pulses intact. No lower extremity edema NEUROLOGIC: Awake and alert. Oriented x 3. ASSESSMENT: Exertional dyspnea 1 year Abnormal nuclear stress test Hypertension Essential tremors Morbid obesity: BMI 44.6 Suspected Sleep apnea Elevated Ddimer Small PE by CTA PLAN: 2-D echo with preserved ejection fraction and left heart catheterization showing only minimal 10% proximal LAD stenosis. Patient underwent workup for elevated d-dimer with CTA being read out as PE. Tums not classic for PE however is reasonable to perform anticoagulation for 3 months. Evaluate blackburn of NOAC. Objective - Vital Signs Vital signs: Vital Signs Temp 98.1 F 10/26/20 07:00 Pulse 51 L 10/26/20 07:00 Resp 16 10/26/20 07:00 BP 116/75 10/26/20 07:00 Pulse Ox 94 L 10/26/20 07:00 Intake & Output 10/25/20 10/26/20 10/26/20 18:59 06:59 18:59 Intake Total 594 59.006 Output Total 300 Balance 294 59.006 Intake: Intake, IV Titration 59.006 Amount Heparin Sod,Pork in 0.45% 59.006 NaCl 25,000 unit In 0.45 % NaCl 1 250ml.bag @ 8.48 UNITS/KG/HR 10.001 mls/ hr IV .Q24H [facility] Rx#: [id number] Oral 594 Output: Urine 300 Other: Voiding Method Toilet Toilet # Voids 3 1 - Labs CBC & Chem 7: 10/26/20 07:43 10/26/20 07:43 Labs: Abnormal Lab Results - Last 24 Hours (Table) 10/25/20 10/25/20 10/26/20 Range/Units 18:35 23:50 07:43 APTT 20.3 L 34.4 H (22.0-30.0) sec Chloride 108 H (98-107) mmol/L Glucose 108 H (74-99) mg/dL
--- NOTE | 2020-10-26 10:41 | P.PN ---
Subjective Progress Note Date: 10/26/20 This is a 60-year-old female patient who presented to the ER after having an abnormal stress test completed this week. Patient reports that she's had ongoing dyspnea and low energy over the past year which warranted a stress test to be completed. Patient does have a past medical history of hypertension and essential tremor. Patient denies nicotine dependence. Chest x-ray was completed in ER showing borderline heart size no acute process seen. EKG completed showing normal sinus rhythm right bundle branch block. Troponins negative 3. Cardiology services have been consulted. 2-D echo has been ordered. Patient started on heparin drip. At this time patient denies chest pain or shortness of breath. Patient denies nausea vomiting or diarrhea. Patient denies any urinary burning or frequency. On 10/26/2020 Patient was seen and examined on the medical floor, he is alert and oriented x 3 in no distress, he denies any complaints there is no fever or chills no headache or dizziness no chest pain no shortness of breath no palpitation no cough no nausea or vomiting no abdominal pain no diarrhea no blood in the stools no burning with urination no frequency or urgency and no hematuria, there is no weakness or numbness in any of the extremities no change in vision speech or gait. Objective - Vital Signs Vital signs: Vital Signs Temp 98.1 F 10/26/20 07:00 Pulse 51 L 10/26/20 07:00 Resp 16 10/26/20 07:00 BP 116/75 10/26/20 07:00 Pulse Ox 94 L 10/26/20 07:00 Intake & Output 10/25/20 10/26/20 10/26/20 18:59 06:59 18:59 Intake Total 594 59.006 Output Total 300 Balance 294 59.006 Intake: Intake, IV Titration 59.006 Amount Heparin Sod,Pork in 0.45% 59.006 NaCl 25,000 unit In 0.45 % NaCl 1 250ml.bag @ 8.48 UNITS/KG/HR 10.001 mls/ hr IV .Q24H [facility] Rx#: [id number] Oral 594 Output: Urine 300 Other: Voiding Method Toilet Toilet # Voids 3 1 - Exam In general patient is alert and oriented x 3 in no distress HEENT head normocephalic and atraumatic Neck is supple no JVD no goiter no lymphadenopathy no carotid bruit Chest examination is clear to auscultation no crackles no wheezing Cardiac exam reveals regular heart sounds S1 and S2 no gallops no murmurs Abdomen is soft nontender no organomegaly with normal bowel sounds Extremity exam reveals no edema no cyanosis or clubbing Neurological examination reveals no gross focal deficits - Labs CBC & Chem 7: 10/26/20 07:43 10/26/20 07:43 Labs: Abnormal Lab Results - Last 24 Hours (Table) 10/25/20 10/25/20 10/26/20 Range/Units 18:35 23:50 07:43 APTT 20.3 L 34.4 H (22.0-30.0) sec Chloride 108 H (98-107) mmol/L Glucose 108 H (74-99) mg/dL Assessment and Plan Assessment: 1. Episodes of chest pain with abnormal stress test. Cardiology services have been consulted. Patient started on heparin drip. Cardiac catheterization done yesterday, and revealed normal coronary arteries with 10% stenosis in the LAD, patient also had elevated d-dimer on presentation, and continued to have chest pain during this admission, at this time will obtain bilateral lower extremity Doppler and CT angiogram of the chest to rule out pulmonary embolism, will also increase IV fluid to normal saline 75 mL/h due to need to use contrast material again, will monitor closely fold these tests are negative possible discharge to home tomorrow 2. History of essential hypertension 3. Essential tremor
[2020-10-26 11:23] LABS: INR 0.9 (<1.2); Prothrombin Time 10.2 sec (9.0-12.0)
--- NOTE | 2020-10-26 19:15 | P.CONS ---
History of Present Illness - Reason for Consult Consult date: 10/26/20 New Diagnosis of Pulmonary Embolism Requesting physician: Yeimi Yates - Chief Complaint Abnormal Stress test - History of Present Illness We were asked to evaluate due to new diagnosis of Pulmonary embolism. Patient presented after abnormal stress test. She has been more sedetary since covid work changes, although still moving around. No recent injury, virus, infections she knows of. She states she has noticed increased shortness of breath over the past 9-12 months but now with associated pain the past few weeks. She denies any history of thrombus personally. She concerned about RLE (Doppler negative) she states it swells, cramps and feels more painful. No personal history of cancer, however post menopausal >10 years ago and she admits to recent vaginal bleeding, heavy to the point she has had to change clothes in day. This has stopped more recently but with addition of anticoagulation mignon need to monitor closely. Review of Systems All systems: negative Constitutional: Reports as per HPI Past Medical History Past Medical History: Hypertension Additional Past Medical History / Comment(s): Essential Tremor. 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 History of Any Multi-Drug Resistant Organisms: None Reported Past Surgical History: Tonsillectomy Additional Past Surgical History / Comment(s): Colonoscopy approximately 2015. Past Anesthesia/Blood Transfusion Reactions: Motion Sickness Smoking Status: Never smoker - Past Family History Father Family Medical History: Cancer Additional Family Medical History / Comment(s): Gastric cancer. Mother Family Medical History: Cancer Additional Family Medical History / Comment(s): Breast cancer. Medications and Allergies Home Medications Medication Instructions Recorded Confirmed Type Propranolol [Inderal] 20 mg PO BID 05/22/19 10/23/20 History Allergies Allergy/AdvReac Type Severity Reaction Status Date / Time Penicillins Allergy Unknown Verified 10/23/20 15:17 Childhood Physical Exam Vitals: Vital Signs Temp Pulse Pulse Resp BP Pulse Ox 10/26/20 07:00 98.1 F 51 L 16 116/75 94 L 10/26/20 06:48 59 L 16 10/26/20 02:12 97.7 F 59 L 16 115/73 95 10/25/20 19:12 98.2 F 64 16 140/66 96 10/25/20 16:42 98.1 F 56 L 17 164/77 98 10/25/20 14:00 16 Intake and Output 10/25/20 10/26/20 10/26/20 22:59 06:59 14:59 Intake Total 358 59.006 Balance 358 59.006 Intake: Intake, IV Titration 59.006 Amount Heparin Sod,Pork in 0.45% 59.006 NaCl 25,000 unit In 0.45 % NaCl 1 250ml.bag @ 8.48 UNITS/KG/HR 10.001 mls/ hr IV .Q24H [facility] Rx#: [id number] Oral 358 Other: Voiding Method Toilet Toilet # Voids 1 1 - Constitutional General appearance: cooperative, no acute distress - EENT Eyes: EOMI, PERRLA ENT: NA/AT - Neck Neck: normal ROM - Respiratory Respiratory: bilateral: diminished - Cardiovascular Rhythm: regularly irregular - Gastrointestinal General gastrointestinal: tenderness Localized gastrointestinal: rebound: RLQ - Integumentary Integumentary: pale - Neurologic Neurologic: CNII-XII intact - Musculoskeletal Musculoskeletal: generalized weakness, strength equal bilaterally - Psychiatric Psychiatric: A&O x's 3 Results CBC & Chem 7: 10/26/20 07:43 10/26/20 07:43 Labs: Abnormal Lab Results - Last 24 Hours (Table) 10/25/20 10/25/20 10/26/20 Range/Units 18:35 23:50 07:43 APTT 20.3 L 34.4 H 50.0 H (22.0-30.0) sec Chloride (98-107) mmol/L Glucose (74-99) mg/dL 10/26/20 Range/Units 07:43 APTT (22.0-30.0) sec Chloride 108 H (98-107) mmol/L Glucose 108 H (74-99) mg/dL CT scan - chest: report reviewed Assessment and Plan (1) Pulmonary emboli Current Visit: Yes Status: Acute Code(s): I26.99 - OTHER PULMONARY EMBOLISM WITHOUT ACUTE COR PULMONALE SNOMED Code(s): 73169631 (2) Abnormal vaginal bleeding in postmenopausal patient Current Visit: Yes Status: Acute Code(s): N95.0 - POSTMENOPAUSAL BLEEDING SNOMED Code(s): 93603255 Plan: Assessment and Recommendations: Pulmonary Emboli: - If recent infection with COVID will need further evaluation of Lupus Antibodies for appropriate Anticoagulation as outpatient - If no underlying hypercoagulable state patient will expect 6 months of anticoagualtion - Appears unprovoked: although she has risk factors. Obesity and decreased activity. - COVID Vaccine in June Abnormal POst menopausal vaginal bleeding, increased bloating and pelvic pain: - - Pelvic ultrasound to assess for underlying malignancy given unprovoked PE Ok to discharge on DOAC and can follow-up with Dr. Victor in 3-4 weeks for hypercoagulable work-up Recommend follow-up with MANAGER PAYER regarding post menopausal bleeding and defer vascular complaints in RLE to cardiology Thank you for allowing us to participate in the care of this patient
[2020-10-27 07:41] VITALS: RESP 16
[2020-10-27] MEDS: PROPRANOLOL 20 MG TAB PO SCH ×2 (08:45→21:01)
[2020-10-27] MEDS: ASPIRIN 81 MG PO SCH (08:48)
[2020-10-27] MEDS: HEPARIN SOD,PORK IN 0.45% NACL 25,000 UNIT in 0.45% NACL 1 250ML.BAG IV SCH (08:48)
[2020-10-27 08:56] LABS: Basophils # (A) 0.07 X 10*3/uL (0.00-0.10); Basophils % (A) 0.7 %; Eosinophils # (A) 0.37 X 10*3/uL (0.04-0.35); Eosinophils % (A) 3.5 %; HCT 42.3 % (37.2-46.3); Lymphocytes # (A) 3.45 X 10*3/uL (0.90-5.00); MCH 27.5 pg (27.0-32.0); MCHC 30.7 g/dL (32.0-37.0); MCV 89.6 fL (80.0-97.0); Mean Platelet Volume 11.2 fL (9.5-12.2); Monocytes # (A) 0.98 X 10*3/uL (0.20-1.00); Monocytes % (A) 9.4 %; Neutrophils # (A) 5.52 X 10*3/uL (1.80-7.70); Neutrophils % (A) 52.6 %; Platelet Count 213 X 10*3/uL (140-440); RBC 4.72 X 10*6/uL (4.10-5.20); RDW 14.3 % (11.5-14.5); WBC 10.47 X 10*3/uL (4.50-10.00)
--- NOTE | 2020-10-27 09:08 | US ---
EXAMINATION TYPE: US pelvis complete transvag DATE OF EXAM: 10/27/2020 COMPARISON: NONE CLINICAL HISTORY: 60-year-old female pain, postmenopausal bleeding . TECHNIQUE: Transvaginal (TV) and Transabdominal (TA) . FINDINGS: EXAM MEASUREMENTS: Uterus: 7.1 x 4.4 x 5.3 cm Endometrial Stripe: 1.7 cm 1. Uterus: Retroverted 2. Endometrium: Abnormally thickened 3. Right Ovary: Obscured by overlying bowel gas 4. Left Ovary: Obscured by overlying bowel gas 5. Bilateral Adnexa: wnl 6. Posterior cul-de-sac: wnl IMPRESSION: 1. Abnormally thickened endometrial stripe measuring up to 1.7 cm. Endometrial hyperplasia and underl jomar endometrial carcinoma or polyps are in the differential. Further MONTESSORI TODDLER TEACHER evaluation recommended. 2. Neither ovary could be visualized.
[2020-10-27 10:34] LABS: African American GFR (CKD) 80.5 (60.0-200.0); Albumin 4.1 g/dL (3.80-4.90); Albumin/Globulin Ratio 1.78 (1.60-3.17); Anion Gap 11.6 mmol/L (4.00-12.00); BUN/Creat Ratio 13.33 Ratio (12.00-20.00); Calcium 9.1 mg/dL (8.7-10.3); Carbon Dioxide 21.4 mmol/L (21.6-31.8); Globulin 2.3 g/dL (1.6-3.3); Non-African American GFR(CKD) 69.5 (60.0-200.0); Potassium 4.5 mmol/L (3.5-5.5); Total Bilirubin 0.4 mg/dL (0.3-1.2); Total Protein 6.4 g/dL (6.2-8.2)
--- NOTE | 2020-10-27 10:49 | P.PN ---
Subjective Progress Note Date: 10/27/20 HISTORY OF PRESENT ILLNESS: This is a 60-year-old female with a past medical history significant for hypertension and essential tremors. 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 We have been asked to see the patient in consultation for abnormal stress test. Patient examined at the bedside. Patient reports she has been having dyspnea with exertion since the summer. She states she had some issues with her insurance and did not have testing completed at that time. However she recently saw her primary care physician and a stress test was ordered. Patient underwent nuclear stress test on 10/22/2020 revealing stress-induced ischemic changes at the cardiac apex and likely within the distal anterior wall from the midportion to the apex. Dyskinesias present through these levels. At the time of my examination, the patient reports mild pain to the left lower chest and armpit. The pain is not worse with deep inspiration or with chest wall palpation. She denies any radiation of the pain to her jaw, back, or arm, she denies any shortness of breath. She denies any nausea or vomiting. She denies any diaphoresis. EKG reveals sinus mechanism with right bundle-branch block Chest xray borderline heart size. No acute process seen. Laboratory data: WBC 12.2. Hemoglobin 13.8. Platelet count 253. D-dimer 0.84. Sodium 140. Potassium 4.9. BUN 21. Creatinine 0.5. Magnesium 2.1. ProBNP 76. Troponin negative 3. Current home cardiac medications include propanolol 20 mg twice a day 10/27/2020 Patient is s/p cardiac cath revealing minimal 10% proximal LAD stenosis. Patient also underwent CT of the chest revealing small PE. She was started on IV heparin area the patient denies any chest pain or pressure this morning she denies shortness of breath. Vital signs are stable. PHYSICAL EXAM: VITAL SIGNS: Reviewed. GENERAL: Well-developed in no acute distress. NECK: Supple. No JVD or thyromegaly LUNGS: Respirations even and unlabored. Lungs essentially clear to auscultation bilaterally. HEART: Regular rate and rhythm. S1 and S2 heard. EXTREMITIES: Normal range of motion. No clubbing or cyanosis. Peripheral pulses intact. No lower extremity edema ASSESSMENT: Exertional dyspnea 1 year Abnormal nuclear stress test Hypertension Essential tremors Morbid obesity: BMI 44.6 Small PE by CTA PLAN: Transition patient to oral anticoagulation No further inpatient recommendations from a cardiac standpoint. We will sign off. Patient to follow up on an outpatient basis with Dr. Albarran Nurse practitioner note has been reviewed by physician. Signing provider agrees with the documented findings, assessment, and plan of care. Objective - Vital Signs Vital signs: Vital Signs Temp 97.8 F 10/27/20 07:00 Pulse 54 L 10/27/20 07:00 Resp 16 10/27/20 08:00 BP 125/61 10/27/20 07:00 Pulse Ox 96 10/27/20 07:00 Intake & Output 10/26/20 10/27/20 10/27/20 18:59 06:59 18:59 Intake Total 190.994 13.313 Balance 190.994 13.313 Intake: Intake, IV Titration 190.994 13.313 Amount Heparin Sod,Pork in 0.45% 190.994 13.313 NaCl 25,000 unit In 0.45 % NaCl 1 250ml.bag @ 8.48 UNITS/KG/HR 10.001 mls/ hr IV .Q24H [facility] Rx#: [id number] Other: Voiding Method Toilet Toilet Toilet # Voids 3 1 - Labs CBC & Chem 7: 10/27/20 05:30 10/27/20 05:30 Labs: Abnormal Lab Results - Last 24 Hours (Table) 10/26/20 10/27/20 10/27/20 Range/Units 07:43 05:30 05:30 WBC 10.47 H (4.50-10.00) X 10*3/uL MCHC 30.7 L (32.0-37.0) g/dL Immature Gran # 0.08 H (0.00-0.04) X 10*3/uL Eosinophils # 0.37 H (0.04-0.35) X 10*3/uL APTT 50.0 H (22.0-30.0) sec Carbon Dioxide 21.4 L (21.6-31.8) mmol/L AST 42 H (13-35) U/L ALT 52 H (8-44) U/L 10/27/20 Range/Units 09:07 WBC (4.50-10.00) X 10*3/uL MCHC (32.0-37.0) g/dL Immature Gran # (0.00-0.04) X 10*3/uL Eosinophils # (0.04-0.35) X 10*3/uL APTT 37.5 H (22.0-30.0) sec Carbon Dioxide (21.6-31.8) mmol/L AST (13-35) U/L ALT (8-44) U/L
[2020-10-27] MEDS: APIXABAN 5 MG TAB PO SCH ×2 (11:36→21:01)
--- NOTE | 2020-10-27 12:52 | P.PN ---
Subjective Progress Note Date: 10/27/20 Principal diagnosis: Unprovoked PE, Transvaginal Ultrasound revealed abnormal endometrial thickening. With new unprovoked PE underlyng malignancy should be excluded. Dr. Persaud consulted for further work-up (tissue sampling) for COUNTER INTELLIGENCE AGENT, Continue heparin drip in interim in case of intervention of tissue sampling, then may convert to PO DOAC Objective - Vital Signs Vital signs: Vital Signs Temp 97.8 F 10/27/20 07:00 Pulse 54 L 10/27/20 07:00 Resp 16 10/27/20 08:00 BP 125/61 10/27/20 07:00 Pulse Ox 96 10/27/20 07:00 Intake & Output 10/26/20 10/27/20 10/27/20 18:59 06:59 18:59 Intake Total 190.994 13.313 Balance 190.994 13.313 Intake: Intake, IV Titration 190.994 13.313 Amount Heparin Sod,Pork in 0.45% 190.994 13.313 NaCl 25,000 unit In 0.45 % NaCl 1 250ml.bag @ 8.48 UNITS/KG/HR 10.001 mls/ hr IV .Q24H [facility] Rx#: [id number] Other: Voiding Method Toilet Toilet Toilet # Voids 3 1 - Exam - Constitutional General appearance: cooperative, no acute distress - EENT Eyes: EOMI, PERRLA ENT: NA/AT - Neck Neck: normal ROM - Respiratory Respiratory: bilateral: diminished - Cardiovascular Rhythm: regularly irregular - Gastrointestinal General gastrointestinal: tenderness Localized gastrointestinal: rebound: RLQ - Integumentary Integumentary: pale - Neurologic Neurologic: CNII-XII intact - Musculoskeletal Musculoskeletal: generalized weakness, strength equal bilaterally - Psychiatric Psychiatric: A&O x's 3 - Labs CBC & Chem 7: 10/27/20 05:30 10/27/20 05:30 Labs: Abnormal Lab Results - Last 24 Hours (Table) 10/27/20 10/27/20 10/27/20 Range/Units 05:30 05:30 09:07 WBC 10.47 H (4.50-10.00) X 10*3/uL MCHC 30.7 L (32.0-37.0) g/dL Immature Gran # 0.08 H (0.00-0.04) X 10*3/uL Eosinophils # 0.37 H (0.04-0.35) X 10*3/uL APTT 37.5 H (22.0-30.0) sec Carbon Dioxide 21.4 L (21.6-31.8) mmol/L AST 42 H (13-35) U/L ALT 52 H (8-44) U/L Assessment and Plan (1) Pulmonary emboli Current Visit: Yes Status: Acute Code(s): I26.99 - OTHER PULMONARY EMBOLISM WITHOUT ACUTE COR PULMONALE SNOMED Code(s): 41276974 (2) Abnormal vaginal bleeding in postmenopausal patient Current Visit: Yes Status: Acute Code(s): N95.0 - POSTMENOPAUSAL BLEEDING SNOMED Code(s): 51480537 Plan: Assessment and Recommendations: Pulmonary Emboli: - If recent infection with COVID will need further evaluation of Lupus Antibodies for appropriate Anticoagulation as outpatient - If no underlying hypercoagulable state patient will expect 6 months of anticoagualtion - Appears unprovoked: although she has risk factors. Obesity and decreased activity. - COVID Vaccine in June Abnormal POst menopausal vaginal bleeding, increased bloating and pelvic pain: - - Pelvic ultrasound to assess for underlying malignancy given unprovoked PE - Endometrial thickening and abnormality concerning for underlying malignancy noted. Plan to hold on starting PO AC until after COUNTER INTELLIGENCE AGENT evaluation in anticipation of biopsy Follow-up in our office in 1-2 weeks
--- NOTE | 2020-10-27 17:57 | P.OBCN ---
History of Present Illness Consult date: 10/27/20 Reason for consult: other (Post menopausal bleeding) Chief complaint: Postmenopausal bleeding, patient initially admitted for unstable angina History of present illness: This is a 60-year-old 0 para 0 that was admitted to [place] [address] for a cardiac stress test. Patient subsequently had an abnormal stress test which resulted in a cardiac catheterization. She states her catheterization was negative. Patient continued to have pressure therefore further workup was completed, revealing a pulmonary embolism. Patient does have a past medical history significant for hypertension and placental tremors. Patient had been experiencing dyspnea with exertion for approximately 1 year. Patient heike lei was seen by primary care and stress test was ordered. Upon discussion with cardiology, she revealed to them a history of postmenopausal bleeding. Patient states she did have an episode of bleeding in May that lasted approximately 30 days heavy in nature. Patient has had multiple episodes of post menopausal bleeding since she was menopausal in 2010. Patient was seen and [address] Patton and recommendation for hysteroscopy D&C was made, patient had a negative endometrial biopsy with Dr. Persaud prior to this recommendation. Patient was scheduled for October 2019 for hysteroscopy D&C a pr ocedure for which she canceled. Patient states since May bleeding has been light in nature. There is some concern that her postmenopausal bleeding could be truly endometrial cancer and contributing to her unprovoked pulmonary embolism. She states she has never been , she denies any changes in her bowel or bladder habits. She states she does struggle with constipation and has for as long as she can rubber and does use stool softeners. She states she has had a 20 pound weight gain over the last year. Patient has been trying to change her diet without any noted weight loss She states she is currently noting occasional vaginal spotting. Review of Systems Constitutional: Reports fatigue, Denies fever Ears, nose, mouth and throat: Denies headache Cardiovascular: Reports leg edema Respiratory: Reports dyspnea Gastrointestinal: Denies change in bowel habits Genitourinary: Reports as per HPI Menstruation: Reports as per HPI, Reports postmenopausal Past Medical History Past Medical History: Hypertension Additional Past Medical History / Comment(s): Essential Tremor. Past PE MANAGER history: she has no history of STDs. History of Any Multi-Drug Resistant Organisms: None Reported Past Surgical History: Tonsillectomy Additional Past Surgical History / Comment(s): Colonoscopy approximately 2015. Past Anesthesia/Blood Transfusion Reactions: Motion Sickness Smoking Status: Never smoker - Past Family History Father Family Medical History: Cancer Additional Family Medical History / Comment(s): Gastric cancer. Mother Family Medical History: Cancer Additional Family Medical History / Comment(s): Breast cancer. Medications and Allergies Home Medications Medication Instructions Recorded Confirmed Type Propranolol [Inderal] 20 mg PO BID 05/22/19 10/23/20 History Apixaban [Eliquis Starter Pack 0 mg PO DIRECTED 30 Days #1 each 10/27/20 Rx (for VTE)] Allergies Allergy/AdvReac Type Severity Reaction Status Date / Time Penicillins Allergy Unknown Verified 10/23/20 15:17 Childhood Exam Osteopathic Statement: *. No significant issues noted on an osteopathic structural exam other than those noted in the History and Physical/Consult. Vital Signs Temp Pulse Pulse Resp BP Pulse Ox 10/27/20 15:00 98.4 F 79 16 125/79 97 10/27/20 13:58 16 10/27/20 08:00 16 10/27/20 07:00 97.8 F 54 L 16 125/61 96 10/27/20 00:46 97.7 F 53 L 18 118/71 95 10/26/20 19:21 98.1 F 65 17 135/81 96 Intake and Output 10/27/20 10/27/20 10/27/20 06:59 14:59 22:59 Intake Total 493.313 Balance 493.313 Intake: Intake, IV Titration 13.313 Amount Heparin Sod,Pork in 0.45% 13.313 NaCl 25,000 unit In 0.45 % NaCl 1 250ml.bag @ 8.48 UNITS/KG/HR 10.001 mls/ hr IV .Q24H [facility] Rx#: [id number] Oral 480 Other: Voiding Method Toilet Toilet # Voids 1 Targeted physical exam is performed in this date and clerk television production a well-nourished well-developed obese female in no acute distress, breathing is appreciated to be nonlabored PE MANAGER exam is deferred. Results Result Diagrams: 10/27/20 05:30 10/27/20 05:30 Abnormal Lab Results - Last 24 Hours (Table) 10/27/20 10/27/20 10/27/20 Range/Units 05:30 05:30 09:07 WBC 10.47 H (4.50-10.00) X 10*3/uL MCHC 30.7 L (32.0-37.0) g/dL Immature Gran # 0.08 H (0.00-0.04) X 10*3/uL Eosinophils # 0.37 H (0.04-0.35) X 10*3/uL APTT 37.5 H (22.0-30.0) sec Carbon Dioxide 21.4 L (21.6-31.8) mmol/L AST 42 H (13-35) U/L ALT 52 H (8-44) U/L Assessment and Plan (1) PMB (postmenopausal bleeding) Current Visit: Yes Status: Acute Code(s): N95.0 - POSTMENOPAUSAL BLEEDING SNOMED Code(s): 02298696 (2) Endometrial thickening on ultrasound Current Visit: Yes Status: Acute Code(s): R93.89 - ABNORMAL FINDINGS ON DX IMAGING OF OTH BODY STRUCTURES SNOMED Code(s): 359531653 Plan: This pleasant 60-year-old 0, presented to the hospital for unstable angina, subsequent stress test was noted to be abnormal which necessitated cardiac catheterization. Cardiac Was negative, symptoms continued and she was sterilely diagnosed with pulmonary embolism inserted on anticoagulation. With further questioning patient revealed her history of postmenopausal bleeding. Patient does need endometrial sampling but given her medical concerns I do believe it would be safer for her to undergo endometrial biopsy in the office. Patient has undergone this procedure in the past and did well. It is reasonable to get a tissue diagnosis from an endometrial biopsy versus putting this patient under general anesthesia. I did recommend that patient have follow-up with our office, ultrasound to be included in the visit. I will discuss with commissary officer scheduling to expedite this appointment. Multiple questions are answered, and patient is understanding of plan of care. Prior ultrasounds and workup are reviewed with patient, ultrasound in 2018 revealing endometrial lining of 1.2, current ultrasound with an endometrial lining of 1.7 cm. Possibility of endometrial hyperplasia versus endometrial cancer discussed with patient, she states understanding and understands the need for follow-up.
--- NOTE | 2020-10-27 19:24 | P.PN ---
Subjective Progress Note Date: 10/27/20 This is a 60-year-old female patient who presented to the ER after having an abnormal stress test completed this week. Patient reports that she's had ongoing dyspnea and low energy over the past year which warranted a stress test to be completed. Patient does have a past medical history of hypertension and essential tremor. Patient denies nicotine dependence. Chest x-ray was completed in ER showing borderline heart size no acute process seen. EKG completed showing normal sinus rhythm right bundle branch block. Troponins negative 3. Cardiology services have been consulted. 2-D echo has been ordered. Patient started on heparin drip. At this time patient denies chest pain or shortness of breath. Patient denies nausea vomiting or diarrhea. Patient denies any urinary burning or frequency. On 10/26/2020 Patient was seen and examined on the medical floor, he is alert and oriented x 3 in no distress, he denies any complaints there is no fever or chills no headache or dizziness no chest pain no shortness of breath no palpitation no cough no nausea or vomiting no abdominal pain no diarrhea no blood in the stools no burning with urination no frequency or urgency and no hematuria, there is no weakness or numbness in any of the extremities no change in vision speech or gait. On 10/27/2020 Patient was seen and examined on the medical floor, he is alert and oriented x 3 in no distress, he denies any complaints there is no fever or chills no headache or dizziness no chest pain no shortness of breath no palpitation no cough no nausea or vomiting no abdominal pain no diarrhea no bl ood in the stools no burning with urination no frequency or urgency and no hematuria, there is no weakness or numbness in any of the extremities no change in vision speech or gait. At this time watch case polisher are looking into coverage for Eliquis or Xarelto, oncology has requested a gynecology evaluation due to occasional vaginal spotting and thickening of the endometrial lining on ultrasound. Possible discharge to home tomorrow Objective - Vital Signs Vital signs: Vital Signs Temp 98.4 F 10/27/20 15:00 Pulse 79 10/27/20 15:00 Resp 16 10/27/20 15:00 BP 125/79 10/27/20 15:00 Pulse Ox 97 10/27/20 15:00 Intake & Output 10/27/20 10/27/20 10/28/20 06:59 18:59 06:59 Intake Total 493.313 Balance 493.313 Intake: Intake, IV Titration 13.313 Amount Heparin Sod,Pork in 0.45% 13.313 NaCl 25,000 unit In 0.45 % NaCl 1 250ml.bag @ 8.48 UNITS/KG/HR 10.001 mls/ hr IV .Q24H [facility] Rx#: [id number] Oral 480 Other: Voiding Method Toilet Toilet # Voids 1 - Exam In general patient is alert and oriented x 3 in no distress HEENT head normocephalic and atraumatic Neck is supple no JVD no goiter no lymphadenopathy no carotid bruit Chest examination is clear to auscultation no crackles no wheezing Cardiac exam reveals regular heart sounds S1 and S2 no gallops no murmurs Abdomen is soft nontender no organomegaly with normal bowel sounds Extremity exam reveals no edema no cyanosis or clubbing Neurological examination reveals no gross focal deficits - Labs CBC & Chem 7: 10/27/20 05:30 10/27/20 05:30 Labs: Abnormal Lab Results - Last 24 Hours (Table) 10/27/20 10/27/20 10/27/20 Range/Units 05:30 05:30 09:07 WBC 10.47 H (4.50-10.00) X 10*3/uL MCHC 30.7 L (32.0-37.0) g/dL Immature Gran # 0.08 H (0.00-0.04) X 10*3/uL Eosinophils # 0.37 H (0.04-0.35) X 10*3/uL APTT 37.5 H (22.0-30.0) sec Carbon Dioxide 21.4 L (21.6-31.8) mmol/L AST 42 H (13-35) U/L ALT 52 H (8-44) U/L Assessment and Plan Assessment: 1. Episodes of chest pain with abnormal stress test. Cardiology services have been consulted. Patient started on heparin drip. Cardiac catheterization done yesterday, and revealed normal coronary arteries with 10% stenosis in the LAD, patient also had elevated d-dimer on presentation, and continued to have chest pain during this admission, at this time will obtain bilateral lower extremity Doppler and CT angiogram of the chest to rule out pulmonary embolism, will also increase IV fluid to normal saline 75 mL/h due to need to use contrast material again, will monitor closely fold these tests are negative possible discharge to home tomorrow 2. History of essential hypertension 3. Essential tremor
--- NOTE | 2020-10-28 06:53 | P.PN ---
Subjective Progress Note Date: 10/28/20 Principal diagnosis: Unprovoked PE, Patient has been seen by MONOGRAM AND LETTER PASTER and apparently has undergone sampling and been seen for post menopausal bleeding in past. MONOGRAM AND LETTER PASTER plans to follow-up with patient, appears she has a known history of hyperplasia. Patient's understanding of prior procedures and hadoop java developer history unclear, also MONOGRAM AND LETTER PASTER has re-educated with her and assured her they will continue to monitor. In the interim, ok for discharge from hematology standpoint on PO DOAC. Plan hypercoag work-up as outpatient and 6 months of AC therapy given no underlying hypercoag state. Objective - Vital Signs Vital signs: Vital Signs Temp 97.4 F L 10/28/20 02:24 Pulse 59 L 10/28/20 02:24 Resp 16 10/28/20 02:24 BP 113/75 10/28/20 02:24 Pulse Ox 91 L 10/28/20 02:24 Intake & Output 10/27/20 10/27/20 10/28/20 06:59 18:59 06:59 Intake Total 493.313 350 Balance 493.313 350 Intake: Intake, IV Titration 13.313 Amount Heparin Sod,Pork in 0.45% 13.313 NaCl 25,000 unit In 0.45 % NaCl 1 250ml.bag @ 8.48 UNITS/KG/HR 10.001 mls/ hr IV .Q24H [facility] Rx#: [id number] Oral 480 350 Other: Voiding Method Toilet Toilet Toilet # Voids 1 3 - Labs CBC & Chem 7: 10/27/20 05:30 10/27/20 05:30 Labs: Abnormal Lab Results - Last 24 Hours (Table) 10/27/20 10/27/20 10/27/20 Range/Units 05:30 05:30 09:07 WBC 10.47 H (4.50-10.00) X 10*3/uL MCHC 30.7 L (32.0-37.0) g/dL Immature Gran # 0.08 H (0.00-0.04) X 10*3/uL Eosinophils # 0.37 H (0.04-0.35) X 10*3/uL APTT 37.5 H (22.0-30.0) sec Carbon Dioxide 21.4 L (21.6-31.8) mmol/L AST 42 H (13-35) U/L ALT 52 H (8-44) U/L Assessment and Plan (1) Pulmonary emboli Current Visit: Yes Status: Acute Code(s): I26.99 - OTHER PULMONARY EMBOLISM WITHOUT ACUTE COR PULMONALE SNOMED Code(s): 93929861 (2) Abnormal vaginal bleeding in postmenopausal patient Current Visit: Yes Status: Acute Code(s): N95.0 - POSTMENOPAUSAL BLEEDING SNOMED Code(s): 20960076 Plan: Assessment and Recommendations: Pulmonary Emboli: - If recent infection with COVID will need further evaluation of Lupus Antibodies for appropriate Anticoagulation as outpatient - If no underlying hypercoagulable state patient will expect 6 months of anticoagualtion - Appears unprovoked: although she has risk factors. Obesity and decreased activity. - COVID Vaccine in June Abnormal POst menopausal vaginal bleeding, increased bloating and pelvic pain: - Patient has been seen by MONOGRAM AND LETTER PASTER and apparently has undergone sampling and been seen for post menopausal bleeding in past. MONOGRAM AND LETTER PASTER plans to follow-up with patient, appears she has a known history of hyperplasia. Patient's understanding of prior procedures and hadoop java developer history unclear, also MONOGRAM AND LETTER PASTER has re-educated with her and assured her they will continue to monitor. In the interim, ok for discharge from hematology standpoint on PO DOAC. Plan hypercoag work-up as outpatient and 6 months of AC therapy given no underlying hypercoag state. follow-up Dr. Victor 3-4 weeks
[2020-10-28 07:22] VITALS: BP 122/75; PULSE 49; TEMP 98.4
[2020-10-28] MEDS: APIXABAN 5 MG TAB PO SCH (07:23)
[2020-10-28] MEDS: PROPRANOLOL 20 MG TAB PO SCH (07:23)
[2020-10-28] MEDS: ASPIRIN 81 MG PO SCH (07:23)
--- NOTE | 2020-10-29 11:57 | P.DS ---
Providers Date of admission: 10/25/20 20:03 Expected date of discharge: 10/28/20 Attending physician: Yeimi Yates Consults: 10/25/20 17:09 Consult Physician Routine Consulting Provider: Mary Landa Consult Reason/Comments: pulmonary embolism Do you want consulting provider notified?: Yes 10/27/20 12:49 Consult Physician Routine Consulting Provider: Jeni Persaud Consult Reason/Comments: ?endometrial cancer, new thrombolic event. Post menopausal bleeding abn tra Do you want consulting provider notified?: Yes Primary care physician: [facility] Course: Diagnosis on discharge: 1. Episodes of chest pain with abnormal stress test. Cardiology services have been consulted. Patient started on heparin drip. Cardiac catheterization done yesterday, and revealed normal coronary arteries with 10% stenosis in the LAD, patient also had elevated d-dimer on presentation, and continued to have chest pain during this admission, at this time will obtain bilateral lower extremity Doppler and CT angiogram of the chest to rule out pulmonary embolism, will also increase IV fluid to normal saline 75 mL/h due to need to use contrast material again, will monitor closely fold these tests are negative possible discharge to home tomorrow 2. History of essential hypertension 3. Essential tremor Hospital course: This is a 60-year-old female patient who presented to the ER after having an abnormal stress test completed this week. Patient reports that she's had ongoing dyspnea and low energy over the past year which warranted a stress test to be completed. Patient does have a past medical history of hypertension and essential tremor. Patient denies nicotine dependence. Chest x-ray was completed in ER showing borderline heart size no acute process seen. EKG completed showing normal sinus rhythm right bundle branch block. Troponins negative 3. Cardiology services have been consulted. 2-D echo has been ordered. Patient started on heparin drip. At this time patient denies chest pain or shortness of breath. Patient denies nausea vomiting or diarrhea. Patient denies any urinary burning or frequency. On 10/26/2020 Patient was seen and examined on the medical floor, he is alert and oriented x 3 in no distress, he denies any complaints there is no fever or chills no headache or dizziness no chest pain no shortness of breath no palpitation no cough no nausea or vomiting no abdominal pain no diarrhea no blood in the stools no burning with urination no frequency or urgency and no hematuria, there is no weakness or numbness in any of the extremities no change in vision speech or gait. On 10/27/2020 Patient was seen and examined on the medical floor, he is alert and oriented x 3 in no distress, he denies any complaints there is no fever or chills no headache or dizziness no chest pain no shortness of breath no palpitation no cough no nausea or vomiting no abdominal pain no diarrhea no blood in the stools no burning with urination no frequency or urgency and no hematuria, there is no weakness or numbness in any of the extremities no change in vision speech or gait. At this time director case management are looking into coverage for Eliquis or Xarelto, oncology has requested a gynecology evaluation due to occasional vaginal spotting and thickening of the endometrial lining on ultrasound. Possible discharge to home tomorrow On 10/28/2020. Patient was evaluated by DIRECTOR CARDIAC services. Recommendation to continue anticoagulation per DIRECTOR CARDIAC. Patient will need follow-up appointment with DIRECTOR CARDIAC for endometrial biopsy. Patient discharged on eliquis. Patient denies any chest pain shortness breath. Patient denies nausea vomiting or diarrhea. Patient denies any urinary burning or frequency Patient Condition at Discharge: Stable Plan - Discharge Summary Discharge Rx Participant: No New Discharge Prescriptions: New Apixaban [Eliquis Starter Pack (for VTE)] 0 mg PO DIRECTED 30 Days #1 each Apixaban [Eliquis] 10 mg PO BID tab Continue Propranolol [Inderal] 20 mg PO BID Discharge Medication List Propranolol [Inderal] 20 mg PO BID 05/22/19 [History] Apixaban [Eliquis Starter Pack (for VTE)] 0 mg PO DIRECTED 30 Days #1 each 10/27/20 [Rx] Apixaban [Eliquis] 10 mg PO BID tab 10/28/20 [Rx] Follow up Appointment(s)/Referral(s): Dwayne Victor MD [STAFF PHYSICIAN] - 4 Weeks (Office will call patient with appointment ) Jeff Albarran DO [STAFF PHYSICIAN] - 1 Week (Office will call patient with appointment ) Yeimi Yates MD [Primary Care Provider] - 1-2 days Patient Instructions/Handouts: *Surgery [facility] - After Heart Catheterization - Maintainability Engineer Instructions, Heart Healthy Diet (DC), After Radial Heart Catheterization (GEN)
== END 2020-10-28 13:33 | disposition home or self-care (01) | DRG 176 ==
LOC: EC 13:30 → 6NMEDSUR 14:55 → OBSVTOIN 10-25 20:03
PROVIDERS: ADMIT Internal Medicine; ATTEND Internal Medicine
PROC: B2111ZZ Fluoroscopy of Multiple Coronary Arteries using Low Osmolar Contrast (ICD-10-PCS; principal; 2020-10-25)
PROC: 4A023N7 Measurement of Cardiac Sampling and Pressure, Left Heart, Percutaneous Approach (ICD-10-PCS; principal; 2020-10-25)
DX: I26.99 Other pulmonary embolism without acute cor pulmonale (principal); Z68.41 Body mass index [BMI] 40.0-44.9, adult; I45.10 Unspecified right bundle-branch block; K59.00 Constipation, unspecified; N95.0 Postmenopausal bleeding; I10 Essential (primary) hypertension; R93.89 Abnormal findings on diagnostic imaging of other specified body structures; G25.0 Essential tremor; G24.9 Dystonia, unspecified; R94.39 Abnormal result of other cardiovascular function study; E66.01 Morbid (severe) obesity due to excess calories; Z80.0 Family history of malignant neoplasm of digestive organs; Z80.3 Family history of malignant neoplasm of breast; Z79.899 Other long term (current) drug therapy; Z98.890 Other specified postprocedural states; Z88.0 Allergy status to penicillin; Z90.89 Acquired absence of other organs; Z60.2 Problems related to living alone
CPT/HCPCS: 36415; 71046; 71275; 76830; 76856; 80053; 80061; 81001; 82272; 82550; 83735; 83880; 84484; 85025; 85379; 85610; 85730; 86304; 93005; 93306; 93458; 93970; 96365; 99285

== ENCOUNTER → 2020-11-11 | Outpatient (CLI) | payer BC ==
[2020-11-11 23:14] LABS: HCT 33.6 % (37.2-46.3); HGB 10.5 g/dL (12.0-15.0); MCH 28.2 pg (27.0-32.0); MCHC 31.3 g/dL (32.0-37.0); MCV 90.3 fL (80.0-97.0); Platelet Count 289 X 10*3/uL (140-440); RBC 3.72 X 10*6/uL (4.10-5.20); RDW 14.8 % (11.5-14.5); WBC 11.94 X 10*3/uL (4.50-10.00)
== END | disposition home or self-care (01) ==
LOC: LABWHC1 16:20
PROVIDERS: ATTEND Internal Medicine
DX: D64.9 Anemia, unspecified (principal)
CPT/HCPCS: 36415; 85027

== ENCOUNTER → 2020-12-31 | Outpatient (CLI) | payer BC ==
[2020-12-31 08:51] LABS: Appearance,Urine Turbid (Clear); Bacteria,Urine Rare /hpf; Bilirubin,Urine Negative (Negative); Blood,Urine Large (Negative); Color,Urine Yellow; Glucose,Urine (UA) Negative (Negative); Ketones,Urine Negative (Negative); Leukocyte Esterase,Urine Negative (Negative); Mucus,Urine Occasional /hpf; Nitrite,Urine Negative (Negative); Protein,Urine Trace (Negative); RBC,Urine 28 /hpf (0-5); Specific Gravity,Urine 1.025 (1.001-1.035); Squamous Epithelial Cell,Urine 9 /hpf (0-4); Urobilinogen,Urine <2.0 mg/dL (<2.0); WBC,Urine 4 /hpf (0-5)
[2020-12-31 11:32] LABS: HGB 11.7 g/dL (12.0-15.0); MCH 28.1 pg (27.0-32.0); MCHC 30.8 g/dL (32.0-37.0); MCV 91.3 fL (80.0-97.0); Mean Platelet Volume 11.1 fL (9.5-12.2); Platelet Count 270 X 10*3/uL (140-440); RBC 4.16 X 10*6/uL (4.10-5.20); RDW 13.5 % (11.5-14.5)
[2020-12-31 16:17] LABS: African American GFR (CKD) 80.5 (60.0-200.0); Albumin 4.1 g/dL (3.8-4.9); Albumin/Globulin Ratio 1.64 (1.60-3.17); Anion Gap 13.8 mmol/L (4.00-12.00); BUN/Creat Ratio 15.33 Ratio (12.00-20.00); Blood Urea Nitrogen 13.8 mg/dL (9.0-27.0); Calcium 9.1 mg/dL (8.7-10.3); Carbon Dioxide 21.2 mmol/L (21.6-31.8); Globulin 2.5 g/dL (1.6-3.3); Non-African American GFR(CKD) 69.5 (60.0-200.0); Potassium 4.3 mmol/L (3.5-5.5); Total Bilirubin 0.2 mg/dL (0.30-1.20); Total Protein 6.6 g/dL (6.2-8.2)
[2020-12-31 22:44] LABS: Cancer Antigen 125 13.7 U/mL (0.0-30.1)
== END | disposition home or self-care (01) ==
LOC: LABWHC1 07:26
PROVIDERS: ATTEND Obstetrics & Gynecology Gynecologic Oncology
DX: N85.00 Endometrial hyperplasia, unspecified (principal)
CPT/HCPCS: 36415; 80053; 81001; 82378; 85027; 86304; 86850; 86900; 86901; 87086

== ENCOUNTER → 2021-04-10 | Outpatient (CLI) | payer BC ==
--- NOTE | 2021-04-11 08:32 | CT ---
EXAMINATION TYPE: CT angio chest DATE OF EXAM: 04/10/2021 COMPARISON: 10/25/2020 HISTORY: Hx PE CT DLP: 528 mGycm CONTRAST: CT chest with contrast and 3D reconstruction with MIP imaging is performed with IV Contrast, patient injected with 100 mL of Isovue 370. Contrast-enhanced CT of the chest was performed through the course of the pulmonary arteries with zechariah g and mediastinal window settings submitted. 3D reconstruction with MIP imaging was also performed. PULMONARY ARTERIES: The pulmonary arteries and their major tributaries are patent. I do not see jake dence for sizable filling defect to suggest pulmonary embolic process. LUNGS: The lungs are clear and free of infiltrate. No evidence for atelectasis. No pulmonary nodule or mass is detected. No pleural effusion. MEDIASTINUM: Thoracic aorta is of normal caliber,however, evaluation is limited given timing of the contrast bolus. If there is concern for thoracic aortic pathology consider KRISTI. Correlate clinicall y . The heart is not enlarged. No evidence for mediastinal mass. No mediastinal lymph nodes greater than 1cm. HILAR STRUCTURES: No evidence for mass. No hilar lymph nodes greater than 1 cm. UPPER ABDOMEN: No significant abnormality is seen. IMPRESSION: 1. No evidence for Pulmonary embolism at this time.
== END | disposition home or self-care (01) ==
LOC: RADCTMAIN 16:53
PROVIDERS: ATTEND Internal Medicine
DX: Z86.711 Personal history of pulmonary embolism (principal)
CPT/HCPCS: 71275; Q9967

== ENCOUNTER → 2021-10-01 | Outpatient (CLI) | payer BC ==
--- NOTE | 2021-10-02 15:36 | MM ---
Reason for Exam: Screening (asymptomatic). Last mammogram was performed 2 year(s) and 4 month(s) ago. Patient History: Menarche at age 9. Patient has no children. Left ovary removed at age 60. Right ovary removed at age 60. Hysterectomy at age 60. Postmenopausal. Mother had breast cancer. Risk Values: [place] 5 year model risk: 3.2%. NCI Lifetime model risk: 14.8%. Prior Study Comparison: 03/24/2016 Bilateral Screening Mammogram, [facility]. 07/12/2017 Bilateral Screening Mammogram, [facility]. 05/22/2019 Bilateral Screening Mammogram, [facility]. Tissue Density: The breast tissue is heterogeneously dense. This may lower the sensitivity of mammography. Findings: Analyzed By CAD. There is no suspicious group of microcalcifications or new suspicious mass in either breast. Benign-appearing bilateral calcifications. No significant change from prior examination. Overall Assessment: Benign, BI-RAD 2 Management: Screening Mammogram of both breasts in 1 year. A clinical breast exam by your physician is recommended on an annual basis and results should be correlated with mammographic findings. Electronically signed and approved by: Blair Soares D.O.
== END | disposition home or self-care (01) ==
LOC: RADMAMWWP 16:18
PROVIDERS: ATTEND Internal Medicine
DX: Z12.31 Encounter for screening mammogram for malignant neoplasm of breast (principal); Z78.0 Asymptomatic menopausal state; Z80.3 Family history of malignant neoplasm of breast
CPT/HCPCS: 77063; 77067

== ENCOUNTER → 2022-10-04 | Outpatient (CLI) | payer OTHER | END | disposition home or self-care (01) | LOC: RADMAMWWP 12:34 | PROVIDERS: ATTEND Internal Medicine | DX: Z53.9 Procedure and treatment not carried out, unspecified reason (principal) ==

== ENCOUNTER → 2022-10-21 | Outpatient (CLI) | payer OTHER ==
[~2022-10-21] MED LIST changes: +IODINE/POTASSIUM IODIDE 14 ML BOTTLE ONE; -LACTATED RINGERS 1,000 ML IV SCH; -LIDOCAINE 1% 20 ML VIAL (10MG/ML) FOR IV START INTRADERMA PRN
--- NOTE | 2022-10-25 11:08 | NM ---
EXAMINATION TYPE: NM DatScan Brain SPECT DATE OF EXAM: 10/21/2022 COMPARISON: NONE HISTORY: Tremor TECHNIQUE: 10 drops of Lugol's solution was administered 1 hour prior to injection as a thyroid bloc moreno agent. After the administration of 4.53 mCi I-123 Ioflupane DaTscan. Images obtained 3 hours p ost injection. SPECT images of the brain were acquired with axial and coronal reconstructions. FINDINGS: The axial SPECT images demonstrate normal background activity. Accounting for head tilt, t here appears to be slight asymmetrically blunted comma-shaped appearance of the right corpus striatum . IMPRESSION: Slightly blunted striatal activity on the left may indicate early changes of idiopathic P arkinson's disease or Parkinsonian syndrome.
== END | disposition home or self-care (01) ==
LOC: RADNMMAIN 10:21
PROVIDERS: ATTEND Psychiatry & Neurology Neurology
DX: G25.0 Essential tremor (principal)
CPT/HCPCS: 78803; A9584

== ENCOUNTER 2023-01-19 09:48 | Day surgery (SDC) | payer OTHER ==
[2023-01-18 08:36] VITALS: BMI 44.2
--- NOTE | 2023-01-19 08:13 | P.GSHP ---
History of Present Illness H&P Date: 01/19/23 CHIEF COMPLAINT: Colon screen HISTORY OF PRESENT ILLNESS: The patient is a 62-year-old female who presents for colon screen. Lower endoscopy was offered for further evaluation and management. PAST MEDICAL HISTORY: Please see list. PAST SURGICAL HISTORY: Please see list. MEDICATIONS: Please see list. ALLERGIES: Please see list. SOCIAL HISTORY: No illicit drug use FAMILY HISTORY: No reports of Crohn disease or ulcerative colitis. REVIEW OF ORGAN SYSTEMS: CONSTITUTIONAL: No reports of fevers or chills. PHYSICAL EXAM: VITAL SIGNS: Stable GENERAL: Well-developed pleasant in no acute distress. HEENT: No scleral icterus. Extraocular movements grossly intact. Moist buccal mucosa. NECK: Supple without lymphadenopathy. CHEST: Unlabored respirations. Equal bilateral excursions. CARDIOVASCULAR: Regular rate and rhythm. Distal 2+ pulses. ABDOMEN: Soft, nontender, nondistended. MUSCULOSKELETAL: No clubbing, cyanosis, or edema. ASSESSMENT: 1. Colon screen. PLAN: 1. Recommend proceeding with a lower endoscopy Past Medical History Past Medical History: Hypertension, Pulmonary Embolus (PE) Additional Past Medical History / Comment(s): Essential Tremor. Past [employer] history: she has no history of STDs. took eloquis bloodclot gone 2020 History of Any Multi-Drug Resistant Organisms: None Reported Past Surgical History: Appendectomy, Hysterectomy, Tonsillectomy Additional Past Surgical History / Comment(s): Colonoscopy approximately 2015. Past Anesthesia/Blood Transfusion Reactions: No Reported Reaction Smoking Status: Never smoker - Past Family History Father Family Medical History: Cancer Additional Family Medical History / Comment(s): Gastric cancer. Mother Family Medical History: Cancer Additional Family Medical History / Comment(s): Breast cancer. Medications and Allergies Home Medications Medication Instructions Recorded Confirmed Type Propranolol [Inderal] 40 mg PO BID 05/22/19 01/18/23 History Isosorbide Mononitrate [Isosorbide 30 mg PO DAILY 01/18/23 01/18/23 History Mononitrate ER] prednisoLONE 25 mg PO HS 01/18/23 01/18/23 History Allergies Allergy/AdvReac Type Severity Reaction Status Date / Time Penicillins Allergy Unknown Verified 01/18/23 09:30 Childhood
[~2023-01-19 09:48] MED LIST changes: -IODINE/POTASSIUM IODIDE 14 ML BOTTLE ONE; +LACTATED RINGERS 1,000 ML IV SCH; +LIDOCAINE 1% (10MG/ML) FOR IV START INTRADERMA PRN
[2023-01-19 10:15] VITALS: TEMP 97.7
[2023-01-19] MEDS ORDERED: PROPOFOL 10 MG/ML 20 ML VIAL IV ONE (11:00)
[2023-01-19] MEDS ORDERED: LIDOCAINE 1% INJ 10MG/ML (20 ML MDV) ONE (11:00)
--- NOTE | 2023-01-19 11:34 | P.PCN ---
Date of Procedure: 01/19/23 Description of Procedure: PREOPERATIVE DIAGNOSIS: Family history colon cancer Personal history colon polyps Colonoscopy screening. POSTOPERATIVE DIAGNOSIS: Colonoscopy screening. Diverticulosis, scattered. OPERATION: Colonoscopy to the cecum, ileocecal valve and appendiceal orifice. SURGEON: Jeni Ramirez MD. ANESTHESIA: MAC. INDICATIONS: The patient is a 62-year-old female who presents for colonoscopy screening. Benefits and risks were described and informed consent was obtained. DESCRIPTION OF PROCEDURE: The patient had undergone Suprep. The patient had been brought into the operating room and laid in the left lateral decubitus position. After adequate intravenous sedation, the rectum was examined with 2% lidocaine jelly. No external hemorrhoids were encountered. The rectal tone was within normal limits. No lesions were palpated in the rectal vault. An Olympus colonoscope was adva nced until the cecum, ileocecal valve and appendiceal orifice were clearly viewed. The prep was excellent. Scattered diverticulosis was encountered. No colonic polyps were found. No evidence of focal colitis was found. Retroflexion of the scope demonstrated grade 1 internal hemorrhoids without active bleeding or inflammation. The colon was desufflated. The patient had tolerated the procedure well. Withdrawal time was over 6 minutes. FINDINGS: Aronchick preparation quality scale 1 (1-5) Internal hemorrhoids, grade 1 No external prolapsed hemorrhoids. No arteriovenous malformations. No adenomatous polyps. No focal colitis. Moderate sigmoid diverticulosis with pandiverticulosis RECOMMENDATIONS: Lower endoscopy in 2027 Plan - Discharge Summary Discharge Rx Participant: No New Discharge Prescriptions: Continue Propranolol [Inderal] 40 mg PO BID Isosorbide Mononitrate [Isosorbide Mononitrate ER] 30 mg PO DAILY Discharge Medication List Propranolol [Inderal] 40 mg PO BID 05/22/19 [History] Isosorbide Mononitrate [Isosorbide Mononitrate ER] 30 mg PO DAILY 01/18/23 [History] Follow up Appointment(s)/Referral(s): Jeni Ramirez MD [STAFF PHYSICIAN] - As Needed Patient Instructions/Handouts: Diverticulosis Diet (GEN), Diverticulosis (DC) Activity/Diet/Wound Care/Special Instructions: Repeat colonoscopy in 5 years2027 Discharge Disposition: HOME SELF-CARE
[2023-01-19 11:55] VITALS: BP 142/67; PULSE 49; RESP 14
== END 2023-01-19 12:18 | disposition home or self-care (01) ==
LOC: ORWHC2ENDO 09:48
PROVIDERS: ATTEND Surgery Plastic and Reconstructive Surgery
DX: Z12.11 Encounter for screening for malignant neoplasm of colon (principal); I10 Essential (primary) hypertension; Z90.49 Acquired absence of other specified parts of digestive tract; Z90.710 Acquired absence of both cervix and uterus; Z80.0 Family history of malignant neoplasm of digestive organs; Z86.711 Personal history of pulmonary embolism; Z79.84 Long term (current) use of oral hypoglycemic drugs; Z79.811 Long term (current) use of aromatase inhibitors; Z88.0 Allergy status to penicillin; Z79.899 Other long term (current) drug therapy
CPT/HCPCS: J2001; J2704; G0105

== ENCOUNTER → 2023-04-20 | Outpatient (CLI) | payer OTHER ==
--- NOTE | 2023-04-21 08:21 | MM ---
Reason for Exam: Screening (asymptomatic). Last mammogram was performed 1 year(s) and 7 month(s) ago. Patient History: Menarche at age 9. Patient has no children. Left ovary removed at age 60. Right ovary removed at age 60. Hysterectomy at age 60. Postmenopausal. Mother had breast cancer. Risk Values: Carolina 5 year model risk: 3.3%. NCI Lifetime model risk: 14.3%. Prior Study Comparison: 07/12/2017 Bilateral Screening Mammogram, [facility]. 05/22/2019 Bilateral Screening Mammogram, [facility]. 10/01/2021 Bilateral MG 3D screening mammo w/cad, [facility]. Tissue Density: The breast tissue is heterogeneously dense. This may lower the sensitivity of mammography. Findings: Analyzed By CAD. There is no suspicious group of microcalcifications or new suspicious mass in either breast. Benign-appearing calcifications. Overall Assessment: Benign, BI-RAD 2 Management: Screening Mammogram of both breasts in 1 year. . Patient should continue monthly self-breast exams. A clinical breast exam by your physician is recommended on an annual basis. This exam should not preclude additional follow-up of suspicious palpable abnormalities. Note on Carolina scores and lifetime risk: 1. A Carolina score greater than 3% is considered moderate risk. If this is the case, consider specialist referral to assess eligibility for a risk reducing agent. 2. If overall lifetime risk for the development of breast cancer is 20% or higher, the patient may qualify for future screening with alternating mammogram and breast MRI. Electronically signed and approved by: Destin Farah M.D. Radiologis
== END | disposition home or self-care (01) ==
LOC: RADMAMWWP 11:02
PROVIDERS: ATTEND Internal Medicine
DX: Z12.31 Encounter for screening mammogram for malignant neoplasm of breast (principal); Z78.0 Asymptomatic menopausal state; Z80.3 Family history of malignant neoplasm of breast
CPT/HCPCS: 77063; 77067

== ENCOUNTER → 2024-10-02 | Outpatient (CLI) | payer OTHER ==
--- NOTE | 2024-10-03 07:34 | BD ---
EXAMINATION TYPE: Axial Bone Density DATE OF EXAM: 10/02/2024 CLINICAL HISTORY: 64 years old Female. ICD-10 CODE: N95.1, M85.88 BD , Additional History: Height: 62.5 in Weight: 247 lbs EXAM MEASUREMENTS: Bone mineral densitometry was performed using the [employer] System. Bone mineral density as measured about the Lumbar spine is: ----- L1-L4(G/cm2): 1.325 T Score Values are as follows: ----- L1: 0.1 ----- L2: 1.6 ----- L3: 1.3 ----- L4: 1.6 ----- L1-L4: 1.2 Z Score Values are as follows: ----- L1: 0.5 ----- L2: 1.9 ----- L3: 1.7 ----- L4: 2.0 ----- L1-L4: 1.6 Bone mineral density baseline Bone mineral density about the R hip (g/cm2): 0.972 Bone mineral density about the L hip (g/cm2): 1.129 T Score values are as follows: -----R Neck: -1.6 -----L Neck: -0.2 -----R Total: -0.3 -----L Total: 1.0 Z Score values are as follows: -----R Neck: -0.9 -----L Neck: 0.5 -----R Total: 0.0 -----L Total: 1.3 Bone mineral density baseline FRAX%s: The graph provided illustrates a 7.7% chance for a major osteoporotic fx and a 0.7% chance fo r the hips probability for fx in 10 years time. IMPRESSION: Normal (Values between +1 and -1 indicate normal bone mass). Consider repeating this study in 5 year s or sooner if there is some new clinical indication. NOTE: T-SCORE=SD OF THE YOUNG ADULT MEAN. [facility], , 10/03/2024 7:32 AM
--- NOTE | 2024-10-03 08:15 | MM ---
Reason for Exam: Screening (asymptomatic). Last mammogram was performed 1 year(s) and 5 month(s) ago. Patient History: Menarche at age 9. Patient has no children. Left ovary removed at age 60. Right ovary removed at age 60. Hysterectomy at age 60. Postmenopausal. Mother had breast cancer. Risk Values: [place] 5 year model risk: 3.5%. NCI Lifetime model risk: 13.5%. Prior Study Comparison: 05/22/2019 Bilateral Screening Mammogram, [facility]. 10/01/2021 Bilateral MG 3D screening mammo w/cad, [facility]. 04/20/2023 Bilateral MG 3D screening mammo w/cad, [facility]. Tissue Density: The breasts are heterogeneously dense, which may obscure small masses. Findings: Analyzed By CAD. Right breast: There is no suspicious group of microcalcifications or new suspicious mass. Left breast: There is no suspicious group of microcalcifications or new suspicious mass. Overall Assessment: Negative, BI-RAD 1 Management: Screening Mammogram of both breasts in [address] [facility] will attempt to contact patient to return for supplemental views and ultrasound if indicated. Patient should continue monthly self-breast exams. A clinical breast exam by your physician is recommended on an annual basis. This exam should not preclude additional follow-up of suspicious palpable abnormalities. Note on Carolina scores and lifetime risk: 1. A Carolina score greater than 3% is considered moderate risk. If this is the case, consider specialist referral to assess eligibility for a risk reducing agent. 2. If overall lifetime risk for the development of breast cancer is 20% or higher, the patient may qualify for future screening with alternating mammogram and breast MRI. [facility], , 10/03/2024 8:12 AM. Electronically signed and approved by: Gio Oliveira DO
== END | disposition home or self-care (01) ==
LOC: RADMAMWWP 15:50
PROVIDERS: ATTEND Internal Medicine
DX: Z12.31 Encounter for screening mammogram for malignant neoplasm of breast (principal); R92.333 Mammographic heterogeneous density, bilateral breasts; M85.851 Other specified disorders of bone density and structure, right thigh; Z78.0 Asymptomatic menopausal state; Z80.3 Family history of malignant neoplasm of breast
CPT/HCPCS: 77063; 77067; 77080